=== PATIENT | male | born 1960 | race Caucasian/White ===

== ENCOUNTER → 2017-09-14 11:40 | Outpatient (CLI) | payer BC, SELFPAY ==
--- NOTE | 2017-09-14 12:02 | RAD_ITS ---
STUDY: X-RAY - LEFT KNEE REASON FOR EXAM: Male, 57 years old. Pain, recent injury TECHNIQUE: Three view(s) of the knee were obtained. COMPARISON: None. FINDINGS: The distal femur is unremarkable. The proximal tibia is unremarkable. There is mild narrowing of the medial femorotibial compartment. Normal lateral femorotibial compartment. Normal patellofemoral articulation. There is trace fullness above the patella. The soft tissue structures are unremarkable. RAD/Knee 4 or More Views IMPRESSION: No acute abnormalities are seen in the knee. There are mild degenerative changes in the medial joint. There is a trace joint effusion. Electronically Signed: Jordyn Tong MD at 18:29 EST Tel Direct: [phone], Service support ,
== END ==
PROVIDERS: Family Provider Family Medicine; PCP Family Medicine; Visit Provider Family Medicine
DX: M25.562 Pain in left knee (principal)
CPT/HCPCS: 73564

== ENCOUNTER 2017-10-23 09:00 | Outpatient (RCR) | payer BC, SELFPAY ==
--- NOTE | 2017-09-30 19:50 | HP.PTEVAL_ITS ---
Patient's Visit Information NADIA BECERRIL is a 57 year old M referred to Physical Therapy by MD WEST Casiano with a diagnosis of L knee strain. Date of Evaluation: 09/25/17 Physical Therapist: Joel Brooke - Visit Plan Frequency: 2x /Week Duration: 6 Weeks Plan: Start with HS, IT band stretching, LLE strengthening, foam rolling quads/ HS/IT band. Progress functional strengthening as tolerated. May use IFC as needed. - Subjective Subjective: Pt. is here today for his initial evaluation with diagnosis of L knee strain. Pt. reports ~6 weeks ago missing the last step while descending and hyper extending his knee. Pt. reports no initial pain, but after ~24 hours having increased soreness. Pt. denies swelling and not feeling a pop. Pt. now has a baseline pain of 2/10 at lateral knee and inferior to patella. Pt. reports increased symptoms with prolonged walking, stairs, and especially after working a full work week. 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 He reports minimal pain acutely, but has a cumulative effect. Pt. reports no medial knee pain, but only lateral and inferior to patella. Pt. had an xray- showing mild medial compartment OA. Pt. has been wearing a neoprene brace with improvement. Pt. denies numbness and no pain at night. Pt. is hopeful to reduce symptoms in order to get back to all recreational and work activities without limitations. - Pain L lateral knee Pain Intensity (Out of 10): 2 Pain Intensity Range: 1, 6 - Objective POSTURE: Pt. is over weight. Pt. has increased DAVE in stance with increased knee varus positioning bilaterally. Pt. has full knee ext in stance with equal wt. shift. PALPATION: Pt. has mild tenderness at distal IT band attachement, inferior pole of patella and superior pole of patella. Pt. has no medial joint line pain, but has slight lateral joint line pain. N MCL or LCL pain. NEUROLOGICAL: Pt. has normal senation throughout bilateral LEs. Pt. has 2+ achilles and patellar DTR bilaterally. Pt. is able to rise on heels and toes without issues or signs of weakness. ROM: R knee- 0-0-125deg empty end feel ( adipose tissues restriction). L knee 0-0-124deg (mild increase NW with knee ext + over pressure). Pt. has normal hip ROM. Pt. does have tight Hs bilat and L tight IT band. MMT: RLE ankle 5/5 throughout; knee 5/5 throughout; hip- flexion 4+/5, abd 4/5, ext 4+/5. LLE- ankle 5/5 throughout; knee- ext 4+/5, flexion 4+/5; hip- flexion 4+/5, abd 4+/5, ext 4+/5. GAIT: Pt. has slight antalgic pattern during L stance phase. Pt. does have TKE, but has increased lateral L wt. shift during L stance phase. STAIRS: Pt. negotiates without increase in pain with reciprocal pattern with 1 HR. - Special Tests L Knee Kimberli - Meniscus: Negative L Knee Apley - Meniscus: Negative L Knee Disco Test - Meniscus: Negative L Knee Anterior Drawer - ACL: Negative L Knee Posterior Drawer - PCL: Negative L Knee Valgus - MCL: Negative L Knee Varus - LCL: Negative - Goals Goal 1:: Pt. to be I with HEP. Goal Time Frame: 4-6 Weeks Goal 2:: Pt. to have increased LLE and core strength by 1/2 grade of all effected musculature. Goal Time Frame: 4-6 Weeks Goal 3:: Pt. to complete all work related activities throughout the week with 0- 1/10 pain in L knee allowing for increased ability to tolerance all work activites. Goal Time Frame: 4-6 Weeks Goal 4:: Pt. to have increased IT band and HS length by 10 deg of LLE. Goal Time Frame: 4-6 Weeks Goal 5:: Pt. to negotiate steps without increase in symptoms. Goal Time Frame: 4-6 Weeks - Rehabilitation Potential Physical Therapy Diagnosis: Pt. has signs and symptoms consistent with L knee strain. Pt. has no signs of meniscal tear or ligament laxity/tear. Pt. appears to have strained his L knee and is having IT band pain, HS pain and supra/infra patellar bursa pain. Pt. would benefit from PT to increase knee ROM, strength throughout LLE, decrease symtpoms and progress tolerance with all work and recreational activities. Rehabilitation Potential: Good - Anticipated Interventions Patient/Client Instruction: Educate patient on: Condition, Plan of Care, Risk Factors, Benefits of Fitness Program For the Purpose of:: To foster healthy habits, To improve decision making, To facilitate caregiver knowledge, To improve self management, To prevent re-injury , To improve ability to perform tasks related to life management, To improve tolerance to ADL's Therapeutic Exercise to Include: Strength training, Power training, Endurance training, Balance training, Postural training, Flexibilty training, Gait and locomotor training, Passive ROM, Active ROM, Dynamic Lumbar Stabilization For the Purpose of:: To decrease pain, To increase ROM, To improve nutrient delivery to tissue, To increase oxygenation perfusion, To improve muscle performance and motor function, To improve ability to perform ADL's, To improve gait and locomotor functions, To improve health of tissue, To decrease soft tissue restriction, To increase flexibility/ROM Manual Therapy Techniques to Include: Mobilization, Passive ROM, Soft tissue mobilization For the Purpose of:: To decrease pain, To increase ROM, To improve nutrient delivery to tissue, To increase oxygenation perfusion IF ES: Yes Cryotherapy (ice pack, ice massage): Yes For the Purpose of:: To decrease pain, To decrease swelling/inflammation, To increase ROM Thank you for the opportunity to evaluate your patient. For Medicare and Medicare HMO plans, please review the plan of care and approve it. It will need to be FAXED BACK to us at [phone] for Medicare purposes. Please let me know if there are questions or concerns regarding this plan of care. Physician Signature: Date:
--- NOTE | 2018-03-06 17:46 | HP.PTDCNRP_ITS ---
HP - Discharge Summary (1) - Patient Information NADIA BECERRIL was seen in my office for initial evaluation on 09/25/17. The following Plan of Care was established for this patient: Initial Frequency: 2x /Week Initial Duration: 6 Weeks - Anticipated Interventions Patient/Client Instruction: Educate patient on: Condition, Plan of Care, Risk Factors, Benefits of Fitness Program For the Purpose of:: To foster healthy habits, To improve decision making, To facilitate caregiver knowledge, To improve self management, To prevent re-injury , To improve ability to perform tasks related to life management, To improve tolerance to ADL's Therapeutic Exercise to Include: Strength training, Power training, Endurance training, Balance training, Postural training, Flexibilty training, Gait and locomotor training, Passive ROM, Active ROM, Dynamic Lumbar Stabilization For the Purpose of:: To decrease pain, To increase ROM, To improve nutrient delivery to tissue, To increase oxygenation perfusion, To improve muscle performance and motor function, To improve ability to perform ADL's, To improve gait and locomotor functions, To improve health of tissue, To decrease soft tissue restriction, To increase flexibility/ROM Manual Therapy Techniques to Include: Mobilization, Passive ROM, Soft tissue mobilization For the Purpose of:: To decrease pain, To increase ROM, To improve nutrient delivery to tissue, To increase oxygenation perfusion IF ES: Yes Cryotherapy (ice pack, ice massage): Yes For the Purpose of:: To decrease pain, To decrease swelling/inflammation, To increase ROM This patient was last seen in our office 10/23/17. Pertinent comments regarding their Physical therapy will appear below: Pt. was seen for his knee pain. He was progressing as expected. Pt. cancelled his last 3 appointments and did not show up for his final assesment. Pt. has not been seen in ~ 4 months and will be DC from PT at this point in time. At this point I will be discontinuing this patient from physical therapy. I would be happy to see this patient again in the future if found appropriate by the physician. Thank you! Joel Brooke
== END 2017-10-23 19:00 | disposition home or self-care (01) ==
LOC: PT 09:00
PROVIDERS: Family Provider Family Medicine; PCP Family Medicine; Visit Provider Family Medicine
DX: S86.819D Strain of other muscle(s) and tendon(s) at lower leg level, unspecified leg, subsequent encounter (principal)
CPT/HCPCS: 97110; 97161

== ENCOUNTER → 2017-11-07 08:50 | Outpatient (CLI) | payer BC, SELFPAY ==
[2017-11-07 10:32] LABS: Anion Gap 8 (5-15); BUN 13 mg/dL (7-18); BUN/Creat Ratio 12.3 RATIO (10-20); Calcium,Total 8.9 mg/dL (8.5-10.1); Chloride 110 mmol/L (98-107); Creatinine, Serum 1.06 mg/dL (0.70-1.30); EST Glomerular Filtration Rate 76 mL/min (>60); Est Glom Filt Rate - Afr Amer 92 mL/min (>60); Glucose 92 mg/dL (74-106); Potassium 4.1 mmol/L (3.5-5.1); Sodium Level 143 mmol/L (136-145)
== END ==
PROVIDERS: Family Medicine; Family Provider Family Medicine; PCP Family Medicine; Visit Provider Family Medicine
DX: I10 Essential (primary) hypertension (principal)
CPT/HCPCS: 36415; 80048

== ENCOUNTER → 2018-04-11 09:10 | Outpatient (CLI) | payer BC, SELFPAY ==
[2018-04-11 10:46] LABS: Anion Gap 11 (5-15); BUN 17 mg/dL (7-18); BUN/Creat Ratio 14.2 RATIO (10-20); Calcium,Total 9.5 mg/dL (8.5-10.1); Chloride 106 mmol/L (98-107); EST Glomerular Filtration Rate 66 mL/min (>60); Est Glom Filt Rate - Afr Amer 79 mL/min (>60); Glucose 91 mg/dL (74-106); Potassium 3.7 mmol/L (3.5-5.1); Sodium Level 142 mmol/L (136-145)
== END ==
PROVIDERS: Family Provider Family Medicine; PCP Family Medicine; Visit Provider Family Medicine
DX: I10 Essential (primary) hypertension (principal)
CPT/HCPCS: 36415; 80048

== ENCOUNTER → 2018-10-09 09:23 | Outpatient (CLI) | payer BC, SELFPAY ==
[2017-12-18 09:31] VITALS: BMI 47.1
[2018-10-09 10:23] LABS: Absolute Lymphocyte Count 1.67 X10^3/ul (0.83-4.51); Absolute Neutrophil Count 3.1 X10^3/uL (2.0-7.7); Basophil# 0.01 X10^3/uL; Basophil% 0.2 % (0-1); Eosinophils% 1.8 % (0-5); Hematocrit 47.1 % (40-54); Hemoglobin 15.6 g/dl (13.0-16.5); Lymphocyte # 1.67 X10^3/ul (4.0); Lymphocyte % 30.3 % (19-41); Mean Corp Hgb Conc 33.1 g/gl (32-36); Mean Corpuscular Hgb 29.3 pg (27.0-32.0); Mean Corpuscular Volume 88.5 fL (80-94); Mean Platelet Vol. 9.4 fl (6.2-12.0); Monocyte# 0.66 X10^3/uL; Neutrophil # 3.07 X10^3/uL (2.7-7.7); Neutrophil % 55.5 % (47-70); Platelet Count 200 K/mm3 (150-450); RBC Distribution Width CV 13.8 % (11.6-14.6); RBC Distribution Width SD 44.9 fl (35.1-43.9); Red Blood Count 5.32 M/mm3 (4.6-6.2); White Blood Count 5.5 K/mm3 (4.4-11.0)
[2018-10-09 10:25] LABS: POSITIVE COUNT NO; POSITIVE DIFFERENTIAL NO; POSITIVE MORPHOLOGY NO
[2018-10-09 10:54] LABS: Anion Gap 9 (5-15); BUN 13 mg/dL (7-18); BUN/Creat Ratio 13.1 RATIO (10-20); Calcium,Total 9.1 mg/dL (8.5-10.1); Chloride 107 mmol/L (98-107); EST Glomerular Filtration Rate 81 mL/min (>60); Est Glom Filt Rate - Afr Amer 98 mL/min (>60); Glucose 94 mg/dL (74-106); Potassium 3.7 mmol/L (3.5-5.1); Sodium Level 142 mmol/L (136-145); Thyroid Stim Hormone (TSH) 1.54 uIU/mL (0.358-3.74)
== END ==
PROVIDERS: Family Provider Family Medicine; PCP Family Medicine; Referring Provider Family Medicine; Visit Provider Family Medicine
DX: R53.83 Other fatigue (principal)
CPT/HCPCS: 36415; 80048; 84403; 84443; 85025

== ENCOUNTER → 2019-05-16 11:10 | Outpatient (CLI) | payer BC, SELFPAY ==
[2018-12-24 09:13] VITALS: BMI 50.1
[2019-05-16 11:34] LABS: Hematocrit 46.1 % (40-54); Hemoglobin 15.6 g/dL (13.0-16.5); Mean Corp Hgb Conc 33.8 g/dL (32-36); Mean Corpuscular Volume 88.7 fL (80-94); Mean Platelet Vol. 9.3 fl (6.2-12.0); Platelet Count 211 K/mm3 (150-450); RBC Distribution Width CV 12.6 % (11.6-14.6); RBC Distribution Width SD 41.5 fl (35.1-43.9); White Blood Count 6.1 K/mm3 (4.4-11.0)
[2019-05-16 12:08] LABS: Vitamin B12 382 pg/mL (211-911)
[2019-05-16 12:43] LABS: ALB/GLOB Ratio 1.1 RATIO (0.9-2.4); AST(SGOT) 21 U/L (15-37); Alanine Aminotransfer ALT/SGPT 28 U/L (16-61); Albumin, Serum 3.9 g/dL (3.2-5.0); Alkaline Phosphatase 72 U/L (45-117); Anion Gap 5 (5-15); BUN 15 mg/dL (7-18); BUN/Creat Ratio 12.8 RATIO (10-20); Chloride 107 mmol/L (98-107); Creatinine, Serum 1.17 mg/dL (0.70-1.30); EST Glomerular Filtration Rate 67 mL/min (>60); Est Glom Filt Rate - Afr Amer 82 mL/min (>60); Globulin 3.7 g/dL (2.2-4.2); Glucose 89 mg/dL (74-106); Potassium 3.9 mmol/L (3.5-5.1); Protein, Total 7.6 g/dL (6.4-8.2); Sodium Level 141 mmol/L (136-145)
[2019-05-20 16:44] LABS: KEPPRA (LEVETIRACETAM) 22.3 ug/mL (10.0-40.0)
== END ==
PROVIDERS: Family Provider Family Medicine; PCP Family Medicine; Referring Provider Clinical Nurse Specialist Acute Care; Visit Provider Clinical Nurse Specialist Acute Care
DX: R56.9 Unspecified convulsions (principal)
CPT/HCPCS: 36415; 80053; 80177; 82607; 82746; 85027

== ENCOUNTER → 2019-10-23 16:14 | Outpatient (CLI) | payer BC, SELFPAY ==
[2018-12-24 09:13] VITALS: BMI 50.1
[2019-10-23 17:56] LABS: PSA,Total - Annual Screen 1.07 ng/mL (0.00-4.00)
== END ==
PROVIDERS: PCP Family Medicine; Referring Provider Family Medicine; Visit Provider Nurse Practitioner Family
DX: Z12.5 Encounter for screening for malignant neoplasm of prostate (principal)
CPT/HCPCS: 36415; 84153; G0103

== ENCOUNTER → 2020-03-03 08:45 | Outpatient (CLI) | payer BC, SELFPAY ==
[2020-01-16 15:25] VITALS: BMI 50.8
--- NOTE | 2020-03-03 08:48 | ECHOCS_ITS ---
Reason For Study: VALVR REPL Procedure This was a 2D Doppler, Color Flow transthoracic echocardiogram. Exam performed in department. Left Ventricle Normal LV size. Septal motion consistent with IVCD. The estimated ejection fraction is 50 %. No regional wall motion abnormalities noted. Right Ventricle Normal RV size. Normal systolic function. Atria Normal left atrium. Normal right atrium. Mitral Valve There is mild mitral annular calcification. Tricuspid Valve Bioprosthetic tricuspid valve. Aortic Valve The aortic valve is not well visualized. Pulmonic Valve The pulmonic valve is not well visualized. Great Vessels Normal aortic root. The pulmonary artery is normal size. Normal inferior vena cava. Pericardium/Pleural No pericardial effusion. Medication 22 gauge I.V. with prn adaptor inserted into right arm. Diluted definity 4.0ml given slow IV push to enhance endocardial definition. MMode/2D Measurements & Calculations LVIDd: 5.5 cm IVSd: 1.1 cm Ao root diam: 4.0 cm LVIDs: 3.5 cm LVPWd: 1.1 cm RVDd: 3.9 cm FS: 35.5 % LAV(MOD-bp): 58.5 ml LVAd ap4: 35.1 cm2 SV(MOD-sp4): 57.2 ml LAV(MOD-bp) Indexed: 24.1 ml/m2 EDV(MOD-sp4): 125.7 ml LAV(MOD-sp2): 38.2 ml EDV(sp4-el): 125.8 ml LAV(MOD-sp4): 69.5 ml LVAs ap4: 23.9 cm2 ESV(MOD-sp4): 68.5 ml ESV(sp4-el): 66.7 ml EF(MOD-sp4): 45.5 % EF(sp4-el): 47.0 % SV(sp4-el): 59.2 ml LA A4 area: 23.1 cm2 LA dimension(2D): 5.5 cm RA A4 area: 18.2 cm2 Time Measurements MV dec time: 0.22 sec Doppler Measurements & Calculations MV E max chris: 65.0 cm/sec Lat Peak E' Chris: 8.6 cm/sec Med Peak E' Chris: 4.9 cm/sec MV A max chris: 77.1 cm/sec E/E' lat: 7.6 E/E' med: 13.3 MV E/A: 0.84 Ao V2 max: 116.7 cm/sec LV V1 max: 71.8 cm/sec TV V2 max: 131.0 cm/sec Ao max P.4 mmHg LV V1 max P.1 mmHg TV max P.9 mmHg TV V2 mean: 89.7 cm/sec TV mean P.4 mmHg PA V2 max: 108.1 cm/sec PI end-d chris: 150.9 cm/sec Interpretation Summary Normal LV size. Septal motion consistent with IVCD. The estimated ejection fraction is 50 %. Bioprosthetic tricuspid valve. Contrast injection was performed. There is no evidence of a mass or vegetation. This does not rule out endocarditis. Ordering Physician: Mainor Albarran Referring Physician: LUIS CLEVELAND Performed By: Arabella Brown, SELAM, RVT
== END ==
PROVIDERS: PCP Family Medicine; Referring Provider Internal Medicine Cardiovascular Disease; Visit Provider Internal Medicine Cardiovascular Disease
DX: I36.1 Nonrheumatic tricuspid (valve) insufficiency (principal); Z95.2 Presence of prosthetic heart valve
CPT/HCPCS: 93306; Q9957; A4216; C8929

== ENCOUNTER → 2020-04-26 16:40 | Outpatient (CLI) | payer BC, SELFPAY ==
[2020-01-16 15:25] VITALS: BMI 50.8
[2020-04-26 18:45] LABS: ALB/GLOB Ratio 1.1 RATIO (0.9-2.4); AST(SGOT) 25 U/L (15-37); Alanine Aminotransfer ALT/SGPT 32 U/L (16-61); Albumin, Serum 3.8 g/dL (3.2-5.0); Alkaline Phosphatase 65 U/L (45-117); Anion Gap 3 (5-15); BUN 13 mg/dL (7-18); BUN/Creat Ratio 11.3 RATIO (10-20); Calcium,Total 9.4 mg/dL (8.5-10.1); Chloride 105 mmol/L (98-107); Cholesterol 144 mg/dL (200); Creatinine, Serum 1.15 mg/dL (0.70-1.30); EST Glomerular Filtration Rate 69 mL/min (>60); Est Glom Filt Rate - Afr Amer 83 mL/min (>60); Globulin 3.6 g/dL (2.2-4.2); Glucose 88 mg/dL (74-106); High Density Lipoprotein 53 mg/dL; Potassium 4.4 mmol/L (3.5-5.1); Protein, Total 7.4 g/dL (6.4-8.2); Sodium Level 140 mmol/L (136-145); Triglycerides 161 mg/dL; Very Low Density Lipoprotein 32 mg/dL (5-40)
== END ==
PROVIDERS: PCP Family Medicine; Referring Provider Family Medicine; Visit Provider Family Medicine
DX: I10 Essential (primary) hypertension (principal)
CPT/HCPCS: 36415; 80053; 80061

== ENCOUNTER → 2020-05-14 07:40 | Outpatient (CLI) | payer BC, SELFPAY ==
[2020-05-13 08:12] VITALS: BMI 50.8
[2020-05-17 20:17] LABS: KEPPRA (LEVETIRACETAM) 14.9 ug/mL (10.0-40.0)
== END ==
PROVIDERS: PCP Family Medicine; Referring Provider Nurse Practitioner Family; Visit Provider Nurse Practitioner Family
DX: G40.909 Epilepsy, unspecified, not intractable, without status epilepticus (principal)
CPT/HCPCS: 36415; 80177; 82140

== ENCOUNTER → 2020-07-13 14:46 | Outpatient (CLI) | payer BC, SELFPAY ==
[2020-05-13 08:12] VITALS: BMI 50.8
== END ==
PROVIDERS: PCP Family Medicine; Referring Provider Psychiatry & Neurology Neurology; Visit Provider Psychiatry & Neurology Neurology
DX: G40.909 Epilepsy, unspecified, not intractable, without status epilepticus (principal)
CPT/HCPCS: 36415; 82140

== ENCOUNTER → 2020-10-11 08:30 | Outpatient (CLI) | payer BC, SELFPAY ==
[2020-05-13 08:12] VITALS: BMI 50.8
[2020-10-11 10:44] LABS: Anion Gap 8 (5-15); BUN 15 mg/dL (7-18); BUN/Creat Ratio 12.8 RATIO (10-20); Calcium,Total 9.5 mg/dL (8.5-10.1); Chloride 105 mmol/L (98-107); Cholesterol 150 mg/dL (200); Creatinine, Serum 1.17 mg/dL (0.70-1.30); EST Glomerular Filtration Rate 67 mL/min (>60); Est Glom Filt Rate - Afr Amer 81 mL/min (>60); Glucose 98 mg/dL (74-106); High Density Lipoprotein 57 mg/dL; Potassium 3.8 mmol/L (3.5-5.1); Sodium Level 140 mmol/L (136-145); Triglycerides 109 mg/dL; Very Low Density Lipoprotein 22 mg/dL (5-40)
[2020-10-16 14:42] LABS: KEPPRA (LEVETIRACETAM) 22.7 ug/mL (10.0-40.0)
== END ==
PROVIDERS: PCP Family Medicine; Referring Provider Family Medicine; Visit Provider Family Medicine
DX: G40.909 Epilepsy, unspecified, not intractable, without status epilepticus (principal); I10 Essential (primary) hypertension
CPT/HCPCS: 36415; 80048; 80061; 80177

== ENCOUNTER → 2020-12-08 08:51 | Outpatient (CLI) | payer BC, SELFPAY ==
[2020-05-13 08:12] VITALS: BMI 50.8
== END ==
PROVIDERS: PCP Family Medicine; Referring Provider Psychiatry & Neurology Neurology; Visit Provider Psychiatry & Neurology Neurology
DX: G40.909 Epilepsy, unspecified, not intractable, without status epilepticus (principal)
CPT/HCPCS: 36415; 82140

== ENCOUNTER → 2021-04-13 16:32 | Outpatient (CLI) | payer BC, SELFPAY ==
[2021-04-13 17:52] LABS: Anion Gap 5 (5-15); BUN 12 mg/dL (7-18); BUN/Creat Ratio 10.4 RATIO (10-20); Calcium,Total 9.8 mg/dL (8.5-10.1); Chloride 108 mmol/L (98-107); Cholesterol 166 mg/dL (200); Creatinine, Serum 1.15 mg/dL (0.70-1.30); EST Glomerular Filtration Rate 68 mL/min (>60); Est Glom Filt Rate - Afr Amer 83 mL/min (>60); Glucose 90 mg/dL (74-106); High Density Lipoprotein 61 mg/dL; Potassium 3.8 mmol/L (3.5-5.1); Sodium Level 138 mmol/L (136-145); Triglycerides 173 mg/dL; Very Low Density Lipoprotein 35 mg/dL (5-40)
== END ==
PROVIDERS: PCP Family Medicine; Referring Provider Family Medicine; Visit Provider Family Medicine
DX: I10 Essential (primary) hypertension (principal)
CPT/HCPCS: 36415; 80048; 80061

== ENCOUNTER → 2021-07-15 14:37 | Outpatient (CLI) | payer BC, SELFPAY ==
[2021-07-15 15:30] LABS: AST(SGOT) 24 U/L (15-37); Alanine Aminotransfer ALT/SGPT 33 U/L (16-61); Albumin, Serum 3.5 g/dL (3.2-5.0); Alkaline Phosphatase 73 U/L (45-117); Bilirubin, Direct 0.18 mg/dL (0.00-0.30); Globulin 4.1 g/dL (2.2-4.2); Protein, Total 7.6 g/dL (6.4-8.2)
[2021-07-20 19:18] LABS: KEPPRA (LEVETIRACETAM) 14.4 ug/mL (10.0-40.0)
== END ==
PROVIDERS: PCP Family Medicine; Referring Provider Nurse Practitioner Family; Visit Provider Nurse Practitioner Family
DX: G40.909 Epilepsy, unspecified, not intractable, without status epilepticus (principal); R79.89 Other specified abnormal findings of blood chemistry
CPT/HCPCS: 36415; 80076; 80177; 82140

== ENCOUNTER 2021-08-29 10:04 | Outpatient (CLI) | payer BC, SELFPAY | END 2021-08-29 23:59 | disposition short-term general hospital (02) | PROVIDERS: PCP Family Medicine; Visit Provider Nurse Practitioner Family | DX: R79.89 Other specified abnormal findings of blood chemistry (principal) | CPT/HCPCS: 36415; 82140 ==

== ENCOUNTER 2021-11-04 15:53 | Outpatient (CLI) | payer BC, SELFPAY ==
[2021-11-04 18:13] LABS: Vitamin D,25 Hydroxy 25.3 ng/mL
[2021-11-04 18:26] LABS: Anion Gap 6 (5-15); BUN 16 mg/dL (7-18); BUN/Creat Ratio 13.3 RATIO (10-20); Calcium,Total 9.3 mg/dL (8.5-10.1); Chloride 103 mmol/L (98-107); Cholesterol 168 mg/dL (200); EST Glomerular Filtration Rate 65 mL/min (>60); Est Glom Filt Rate - Afr Amer 79 mL/min (>60); Glucose 89 mg/dL (74-106); High Density Lipoprotein 61 mg/dL; PSA,Total - Annual Screen 1.36 ng/mL (0.00-4.00); Potassium 3.6 mmol/L (3.5-5.1); Sodium Level 139 mmol/L (136-145); Thyroid Stim Hormone (TSH) 1.82 uIU/mL (0.358-3.74); Triglycerides 113 mg/dL; Very Low Density Lipoprotein 23 mg/dL (5-40)
== END 2021-11-04 23:59 | disposition home or self-care (01) ==
LOC: MTLAB 15:54
PROVIDERS: PCP Family Medicine; Referring Provider Family Medicine; Visit Provider Family Medicine
DX: Z00.00 Encounter for general adult medical examination without abnormal findings (principal)
CPT/HCPCS: 36415; 80048; 80061; 82306; 84153; 84443; G0103

== ENCOUNTER → 2022-05-17 | Outpatient (CLI) | payer BC, SELFPAY ==
[2022-05-17 18:23] LABS: Anion Gap 9 (5-15); BUN 12 mg/dL (7-18); BUN/Creat Ratio 10.3 RATIO (10-20); Calcium,Total 10.3 mg/dL (8.5-10.1); Chloride 108 mmol/L (98-107); Cholesterol 155 mg/dL (200); Creatinine, Serum 1.17 mg/dL (0.70-1.30); EST Glomerular Filtration Rate 67 mL/min (>60); Est Glom Filt Rate - Afr Amer 81 mL/min (>60); Glucose 85 mg/dL (74-106); High Density Lipoprotein 56 mg/dL; Potassium 3.5 mmol/L (3.5-5.1); Sodium Level 143 mmol/L (136-145); Triglycerides 132 mg/dL; Very Low Density Lipoprotein 26 mg/dL (5-40)
== END | disposition home or self-care (01) ==
LOC: MFPLAB 16:50
PROVIDERS: PCP Family Medicine; Referring Provider Family Medicine; Visit Provider Family Medicine
DX: I10 Essential (primary) hypertension (principal)
CPT/HCPCS: 36415; 80048; 80061

== ENCOUNTER 2022-05-26 07:19 | Day surgery (SDC) | payer BC, SELFPAY ==
[2022-05-26 07:48] VITALS: BP 127/86; PULSE 70; RESP 16; TEMP 36.4; O2SAT 100; BMI 51.9
[2022-05-26] MEDS: Lactated Ringers 1,000 ML 15 ML IV (07:56)
--- NOTE | 2022-05-26 08:12 | PCM.HP.BLA ---
History and Physical Date of Admission: 05/26/22 Intake Vital Signs ? 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 Taper Operator Required: No Is patient in pain?: No Allergies No Known Allergies Allergy (Verified 12/06/21 08:59) Medications multivitamin 1 ea PO DAILY 01/03/16 [History Confirmed 12/06/21] acetaminophen 650 mg PO Q6H PRN PRN #0 tab 01/07/16 [Rx Confirmed 12/06/21] aspirin 81 mg tablet,delayed release 81 mg PO QDAY 12/17/17 [History Confirmed 12/06/21] triamcinolone acetonide 55 mcg nasal spray aerosol 1 spray INTRANASAL QDAY PRN 12/18/17 [History Confirmed 12/06/21] hydrochlorothiazide 25 mg tablet 25 mg PO QDAY #90 tab 07/20/21 [Rx Confirmed 12/06/21] lisinopril 20 mg tablet 20 mg PO QDAY #90 tab 07/20/21 [Rx Confirmed 12/06/21] pravastatin 40 mg tablet 40 mg PO QHS #90 tab 07/20/21 [Rx Confirmed 12/06/21] lactulose 10 gram/15 mL oral solution 30 ml PO DAILY #2700 ml 12/05/21 [Rx Confirmed 12/06/21] levetiracetam 1,000 mg tablet 1,000 mg PO BID #180 tablet 12/05/21 [Rx Confirmed 12/06/21] PFSH Medical History? Bronchitis Cellulitis Cerebrovascular disease CVA (cerebral vascular accident) DVT (deep venous thrombosis) Endocarditis of tricuspid valve Enterococcal bacteremia Epidural abscess Epilepsy, unspecified, not intractable, without status epilepticus Essential hypertension Hx of sepsis Hyperlipidemia Increased ammonia level Iron deficiency anemia Lung nodule Non-rheumatic tricuspid valve insufficiency Obesity Obstructive sleep apnea Pulmonary emboli Renal insufficiency Venous insufficiency of both lower extremities Surgical History? 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 HLD (hyperlipidemia)Sister HypertensionDaughter SeizuresGrandfather Heart diseaseUncle Colon cancer Diabetes Social History? Smoking Status:? Never smoker alcohol intake:? current alcohol intake frequency: holidays/special occasions only Alcohol type: beer and hard liquor substance use type:? does not use HPI HPI HPI: NADIA BECERRIL, is a 61 M who presents to the office today for colonoscopy.? Patient has never had a screening colonoscopy.? He did have a Cologuard 5 or 6 years ago which was normal.? He has no family history of colon cancer.? He is not having any abdominal pain or blood in the stool. ROS General General: Yes weight change; No appetite, fatigue, colon cancer, breast cancer or weakness HEENT HEENT: No difficulty swallowing, eye injury, eye surgery, swollen glands or hoarseness Endo Endocrine: No thyroid disease, diabetes mellitus, thyroid cancer, Hair loss, heat intolerance or cold intolerance Skin Skin: No rash or changing moles Musc Musculoskeletal: Yes arthritis; No back problems, rheumatoid arthritis, gout or joint pain Cardio Cardiovascular: Yes high blood pressure; No murmur, pacemaker, heart disease, atrial fibrillation, heart attack, heart stent, palpitations, shortness of breat with exertion or chest pain Additional Details: Hx of valve replacement Psych Psychiatric: No depression, anxiety or hearing voices Resp Respiratory: Yes shortness of breath, Yes sleep apnea, No cough, No COPD, No asthma, No emphysema and No wheezing Gastro Gastrointestinal: No abdominal pain, No nausea or vomiting, No diarrhea, No constipation, No blood in stool, No acid reflux, Yes hemorrhoids, No ulcers, No gallbladder problem and No black,tarry stools Bubba Hematologic: No blood thinners, No blood disorders, No bleeding, No anemia and No blood clots Neuro Neurologic: No system reviewed and no additional complaints, except as documented, No as per HPI, No abnormal gait, No abnormal hearing, No abnormal movements, No abnormal speech, No behavioral changes, No burning sensations, No confusion, No convulsions, No disequilibrium, No dizziness, No localized weakness, No frequent falls, No headache(s), No lack of coordination, No loss of vision, No memory loss, No numbness, No other visual disturbances, No radicular pain, No restless legs, No sensory deficit, No syncope, No tingling, No tremor(s), No weakness and No other Exam Const General: cooperative Orientation: alert and oriented x3 HENMT Head: normal to inspection Neck Neck: normal visual inspection and full ROM Chest Chest palpation & inspection: normal inspection of the chest Resp Effort & Inspection: normal respiratory effort Auscultation: clear to auscultation bilaterally Cardio Rate: regular rate Rhythm: regular rhythm GI Inspection: non-distended Palpation: soft and nontender Skin General: no rashes or lesions noted Neuro General: patient alert and patient oriented x3 Extrem General: full ROM Psych Appearance: grossly normal Mental Status: mental status grossly normal Assessment and Plan Assessment and Plan (1) Screen for colon cancer: ?Status:?Acute ?Plan - Dr. Sohan Zheng MD: I explained endoscopy in detail to the patient.? I explained the risks including but not limited to stroke or heart attack with anesthesia, perforation of the GI tract, bleeding, infection.? I explained that any of these could necessitate further emergency surgery.? The patient understands and all questions were answered sufficiently.? The patient wishes to proceed with procedure. Sohan Zheng MD Pager: [facility] [address] [place] [address], [address] [place] [address] Office: I have re-examined the patient. There are no clinical changes since date of exam.
--- NOTE | 2022-05-26 08:30 | COLBX_PTH ---
PATIENT: NADIA BECERRIL LOC: EN U#:[id number] AGE/SX: 62/M ROOM: RE05/26/[address]: Dr. Sohan Zheng MD : 1960 BED: DIS: 05/26/2022 SPEC #: [id number] RECD: 05/26/22 11:31 STATUS: CITLALLI REGrisel #: [id number] AQUILINO: 05/26/22 08:[address]: Sohan Zheng DEPT: SURGICAL PATHOLOGY RECD BY: Ting Walton ENTERED: 05/26/22 12:33 SP TYPE: COLON BX OTHR DR: Dr. Esteban Hensley MD Tissues: Cecum, NOS Procedures: Surgery Specimen Level IV HEADER OPERATION: Colonoscopy (MAC) PRE-OP DIAGNOSIS: Screening TISSUE SUBMITTED: Cecum polyp MICROSCOPIC DIAGNOSIS Cecal polyp, biopsy: Fragments of tubular adenoma. AM:sierra 05/29/2022 MICROSCOPIC DESCRIPTION Slides are reviewed. GROSS DESCRIPTION Received in fixative is one container labeled with the patient's name and designated cecal polyp. The specimen consists of multiple irregular fragments of light marroquin soft tissue that in aggregate measure 1 x 0.6 x 0.1 cm. The specimen is totally submitted in one cassette. / AM:sierra 05/26/2022 TC:5 CPT: 64282
[2022-05-26 08:45] VITALS: BP 118/108; BP 127/86; PULSE 71; RESP 16; TEMP 36.9; O2SAT 93
--- NOTE | 2022-05-26 08:46 | OP.COLON_ITS ---
Patient Name: Fredis Bills Procedure Date: 05/26/2022 8:25 AM Date of : 1960 Age: 62 Procedure: Colonoscopy Indications: Screening for colorectal malignant neoplasm Providers: Sohan Zheng MD Medicines: Monitored Anesthesia Care Patient Profile: This is a 62 year old male. Refer to note in patient chart for documentation of history and physical. Last Colonoscopy: none. The patient's first colonoscopy is today. Complications: No immediate complications. Procedure: Pre-Anesthesia Assessment: - Prior to the procedure, a History and Physical was performed, and patient medications and allergies were reviewed. The patient's tolerance of previous anesthesia was also reviewed. The risks and benefits of the procedure and the sedation options and risks were discussed with the patient. All questions were answered, and informed consent was obtained. Prior Anticoagulants: The patient has taken no previous anticoagulant or antiplatelet agents. After reviewing the risks and benefits, the patient was deemed in satisfactory condition to undergo the procedure. After I obtained informed consent, the scope was passed under direct vision. Throughout the procedure, the patient's blood pressure, pulse, and oxygen saturations were monitored continuously. The Colonoscope was introduced through the anus and advanced to the cecum, identified by appendiceal orifice and ileocecal valve. The colonoscopy was performed without difficulty. The patient tolerated the procedure well. The quality of the bowel preparation was good. Scope In: 8:28:01 AM Scope Withdrawal Time 0 hours 7 minutes 21 seconds Scope Out: 8:38:24 AM Total Procedure Duration Time 0 hours 10 minutes 23 seconds Findings: A medium polyp was found in the cecum. The polyp was removed with a hot snare. Resection and retrieval were complete. Verification of patient identification for the specimen was done. The exam was otherwise without abnormality on direct and retroflexion views. Impression: - One medium polyp in the cecum, removed with a hot snare. Resected and retrieved. - The examination was otherwise normal on direct and retroflexion views. Recommendation: - Await pathology results. - Repeat colonoscopy in 5 years for surveillance. - Discharge patient to home. - Resume previous diet. - Continue present medications. Procedure Code(s): --- Professional --- 39392, Colonoscopy, flexible; with removal of tumor(s), polyp(s), or other lesion(s) by snare technique Diagnosis Code(s): --- Professional --- Z12.11, Encounter for screening for malignant neoplasm of colon D12.0, Benign neoplasm of cecum CPT copyright 2017 [employer] [place] [employer]. All rights reserved. The codes documented in this report are preliminary and upon juke box mechanic review may be revised to meet current compliance requirements. Sohan Zheng MD 05/26/2022 8:45:43 AM This report has been signed electronically. Number of Addenda: 0 Note Initiated On: 05/26/2022 8:25 AM
--- NOTE | 2022-05-26 08:47 | OP.CCLET_ITS ---
05/26/2022 Esteban Hensley MD [address] [place] [address] Re : Colonoscopy procedure for Fredis Bills Dear Dr. Hensley This procedure was performed on Thursday, May 26, 2022. My impressions and recommendations are as follows: Impressions : - One medium polyp in the cecum, removed with a hot snare. Resected and retrieved. - The examination was otherwise normal on direct and retroflexion views. Recommendations : - Await pathology results. - Repeat colonoscopy in 5 years for surveillance. - Discharge patient to home. - Resume previous diet. - Continue present medications. My findings are described in the full procedure note, which is enclosed. If I can be of further assistance, please feel free to contact me at Doctor phone number(s): , Work: . Sincerely, Sohan Zheng MD 05/26/2022 8:45:43 AM This report has been signed electronically.
[2022-05-26 08:50] VITALS: BP 127/86; BP 72/42; PULSE 72; RESP 16; O2SAT 89
[2022-05-26 08:55] VITALS: BP 127/86; BP 99/74; PULSE 66; RESP 16; O2SAT 94
[2022-05-26 09:00] VITALS: BP 103/72; BP 127/86; PULSE 65; RESP 16; TEMP 36.8; O2SAT 93
[2022-05-26 09:14] VITALS: BP 127/86
== END 2022-05-26 09:43 | disposition home or self-care (01) ==
LOC: EN 07:20 → AC 07:21
PROVIDERS: PCP Family Medicine; Referring Provider Family Medicine; Visit Provider Surgery
PROC: 0DJD8ZZ Inspection of Lower Intestinal Tract, Via Natural or Artificial Opening Endoscopic (ICD-10-PCS; CPT 45378; principal; 2022-05-26 08:25)
DX: Z12.11 Encounter for screening for malignant neoplasm of colon (principal); Z68.43 Body mass index [BMI] 50.0-59.9, adult; G40.909 Epilepsy, unspecified, not intractable, without status epilepticus; D12.0 Benign neoplasm of cecum; I10 Essential (primary) hypertension; E78.5 Hyperlipidemia, unspecified; G47.33 Obstructive sleep apnea (adult) (pediatric); E66.9 Obesity, unspecified; Z79.82 Long term (current) use of aspirin; Z79.899 Other long term (current) drug therapy; Z86.73 Personal history of transient ischemic attack (TIA), and cerebral infarction without residual deficits; Z86.718 Personal history of other venous thrombosis and embolism; Z80.0 Family history of malignant neoplasm of digestive organs
CPT/HCPCS: 45385; 88305; J7120; J0290; J2405

== ENCOUNTER → 2022-08-31 | Outpatient (CLI) | payer BC, SELFPAY ==
[2022-08-31 16:31] LABS: ALB/GLOB Ratio 1.1 RATIO (0.9-2.4); AST(SGOT) 26 U/L (15-37); Alanine Aminotransfer ALT/SGPT 33 U/L (16-61); Alkaline Phosphatase 64 U/L (45-117); Anion Gap 8 (5-15); BUN 15 mg/dL (7-18); BUN/Creat Ratio 12.9 RATIO (10-20); Calcium,Total 9.3 mg/dL (8.5-10.1); Chloride 108 mmol/L (98-107); Creatinine, Serum 1.16 mg/dL (0.70-1.30); EST Glomerular Filtration Rate 67 mL/min (>60); Est Glom Filt Rate - Afr Amer 81 mL/min (>60); Globulin 3.6 g/dL (2.2-4.2); Glucose 96 mg/dL (74-106); Potassium 3.6 mmol/L (3.5-5.1); Protein, Total 7.6 g/dL (6.4-8.2); Sodium Level 143 mmol/L (136-145)
[2022-09-04 20:54] LABS: KEPPRA (LEVETIRACETAM) 16.1 ug/mL (10.0-40.0)
== END | disposition home or self-care (01) ==
LOC: LAB 15:27
PROVIDERS: PCP Family Medicine; Visit Provider Nurse Practitioner Family
DX: G40.909 Epilepsy, unspecified, not intractable, without status epilepticus (principal)
CPT/HCPCS: 36415; 80053; 80177; 82140

== ENCOUNTER → 2022-10-04 | Outpatient (CLI) | payer BC, SELFPAY ==
[2022-10-04 16:33] LABS: Hematocrit 48.7 % (40-54); Hemoglobin 15.7 g/dL (13.0-16.5); Mean Corp Hgb Conc 32.2 g/dL (32-36); Mean Corpuscular Hgb 29.6 pg (27.0-32.0); Mean Corpuscular Volume 91.9 fL (80-94); Mean Platelet Vol. 9.6 fl (6.2-12.0); Platelet Count 195 K/mm3 (150-450); RBC Distribution Width CV 13.7 % (11.6-14.6); RBC Distribution Width SD 46.6 fl (35.1-43.9); White Blood Count 11.9 K/mm3 (4.4-11.0)
== END | disposition home or self-care (01) ==
LOC: MFPLAB 11:42
PROVIDERS: PCP Family Medicine; Visit Provider Nurse Practitioner Family
DX: R52 Pain, unspecified (principal)
CPT/HCPCS: 36415; 85027

== ENCOUNTER 2022-10-07 11:54 | Inpatient (IN) | payer BC, SELFPAY ==
[2022-10-07 11:55] VITALS: BP 147/119; PULSE 86; RESP 88; TEMP 36.2; O2SAT 98; BMI 53.7
--- NOTE | 2022-10-07 12:07 | VDLE_ITS ---
Reason For Study: PAIN RIGHT GSV is normal. CFV is compressible, spontaneous, phasic, competent and demonstrates normal augmentation. FV is compressible, spontaneous, phasic, competent and demonstrates normal augmentation. POP V is compressible, spontaneous, phasic, competent and demonstrates normal augmentation. T/P Trunk is compressible. PTV is compressible. RT PerV is compressible. Procedure This is a venous duplex using B-mode, color flow and spectral Doppler. Exam performed portable in patient room. The study was technically difficult. A preliminary report was called and/or faxed to [facility]. VL/Venous Duplex US, Unilateral Interpretation Summary Deep veins of the right lower extremity are patent and compressible segmentally . There is no evidence of right lower extremity deep vein thrombosis. The right great sapheno us vein appears patent and compressible segmentally. Ordering Physician: Anuradha Nieto Referring Physician: Esteban Hensley Performed By: Melvina Hinds, SELAM, RVT
--- NOTE | 2022-10-07 12:09 | EX.ED.DYSGE1 ---
HPI <WILMER Soriano - Last Filed: 10/07/22 14:19> History of Present Illness Chief Complaint: Cellulitis Narrative Narrative: 62-year-old male presents with right leg cellulitis. 4 days ago he had fever and chills and saw his doctor. He had negative COVID and flu swabs and a normal CBC. The next day he still was not feeling well and noticed redness of his right lower leg extending up the inner thigh. He went to urgent care and was prescribed Keflex 4 times a day which she has been taking for the last 2.5 days. He states the redness is superintendent terminal and his fever/chills have resolved but since it was not getting completely better he came in for evaluation. PFS <WILMER Soriano - Last Filed: 10/07/22 14:19> [facility] Medical History BiPAP (biphasic positive airway pressure) dependence Bronchitis Cardiology follow-up encounter Cellulitis Cerebrovascular disease CVA (cerebral vascular accident) DVT (deep venous thrombosis) Endocarditis of tricuspid valve Enterococcal bacteremia Epidural abscess Epilepsy, unspecified, not intractable, without status epilepticus Essential hypertension History of edema History of stress test Hx of sepsis Hyperlipidemia Increased ammonia level Iron deficiency anemia Lung nodule Non-rheumatic tricuspid valve insufficiency Non-smoker Obesity Obstructive sleep apnea Pulmonary emboli Renal insufficiency Seizures Sleep apnea Venous insufficiency of both lower extremities Wears dentures Wears glasses Wears partial dentures Home Medications multivitamin 1 ea PO DAILY 01/03/16 [History Last Taken 10/07/22] aspirin 81 mg tablet,delayed release (Adult Low Dose Aspirin) 81 mg PO QDAY 12/17/17 [History Last Taken 10/07/22] triamcinolone acetonide 55 mcg nasal spray aerosol (Nasacort) 1 spray intranasal QDAY PRN Allergy Symptoms 12/18/17 [History Last Taken Unknown] cholecalciferol (vitamin D3) 25 mcg (1,000 unit) capsule 25 mcg PO DAILY 05/09/22 [History Last Taken 10/07/22] hydrochlorothiazide 25 mg tablet 25 mg PO QDAY #90 tabs 06/26/22 [Rx Last Taken 10/07/22] lisinopril 20 mg tablet 20 mg PO QDAY #90 tabs 06/26/22 [Rx Last Taken 10/07/22] pravastatin 40 mg tablet 40 mg PO QHS #90 tabs 06/26/22 [Rx Last Taken 10/06/22] levetiracetam 1,000 mg tablet 1,000 mg PO BID #180 tabs 09/07/22 [Rx Last Taken 10/07/22] cephalexin 500 mg capsule 500 mg PO 4XD . 10/07/22 [History Last Taken 10/07/22] loratadine 10 mg tablet 10 mg PO DAILY ALLERGIES 10/07/22 [History Last Taken 10/07/22] Allergy/AdvReac Type Severity Reaction Status Date / Time Sulfa (Sulfonamide AdvReac Upset Verified 10/07/22 11:57 Antibiotics) Stomach Family History Mother Hypertension Father HLD (hyperlipidemia) Sister Hypertension Daughter Seizures Grandfather Heart disease Uncle Colon cancer Diabetes Surgical History History of tricuspid valve replacement (08/18/14) hx mediastinal hemorrhage Hx of cataract surgery Hx of laminectomy PICC (peripherally inserted central catheter) in place Social History (Updated 09/07/22 @ 15:53 by Yoli Bhatti) Smoking Status: Never smoker second hand exposure: No alcohol intake: current alcohol intake frequency: holidays/special occasions only Alcohol type: beer and hard liquor substance use type: does not use burt/mu-ism: Gnosticist seatbelt use: sometimes ROS <WILMER Soriano - Last Filed: 10/07/22 14:19> ROS ED ROS Narrative Constitutional: Positive for fever, chills. CVS: Negative for palpitations, chest pain. Respiratory: Negative for shortness of breath, cough. GI: Negative for abdominal pain, nausea, vomiting. : Negative for dysuria. Neuro: Negative for motor/sensory dysfunction. Skin: Positive for erythema of right lower leg. No wound. Musc: Negative for joint pain, trauma. Heme: Negative for easy bruising, bleeding, lymphadenopathy. EXAM <WILMER Soriano - Last Filed: 10/07/22 14:19> Physical Exam Narrative Exam Narrative: CONST: Patient sitting in no acute distress. EYES: Normal inspection. NECK: Normal inspection. RESP: No respiratory distress, CTAB. CVS: Regular rate and rhythm, no murmur, no gallop. SKIN: Circumferential patchy erythema of the lower leg from the knee to the ankle and then patchy erythema extending up the medial thigh to the groin but no genital involvement. Warm to touch, no breaks in the skin or wounds. No crepitus or fluctuance. EXTREMITIES: Full ROM of lower extremities, no bony tenderness, 2+ DP pulses. NEURO: Oriented x4. PSYCH: Normal affect. Const Vital Signs: 10/07/22 11:55 10/07/22 12:05 10/07/22 13:17 Temperature 97.1 F L 97.8 F Temperature Source Temporal Temporal Pulse Rate 86 89 Respiratory Rate 88 H 18 Respiratory Effort Normal Non-Labored Blood Pressure 147/119 H 100/71 Blood Pressure Mean 128 80 Pulse Ox 98 97 Oxygen Delivery Method Room Air <Dr. Jordyn Ramesh MD - Last Filed: 10/07/22 14:07> Physical Exam Const Vital Signs: 10/07/22 11:55 10/07/22 12:05 10/07/22 13:17 Temperature 97.1 F L 97.8 F Temperature Source Temporal Temporal Pulse Rate 86 89 Respiratory Rate 88 H 18 Respiratory Effort Normal Non-Labored Blood Pressure 147/119 H 100/71 Blood Pressure Mean 128 80 Pulse Ox 98 97 Oxygen Delivery Method Room Air MDM <WILMER Soriano - Last Filed: 10/07/22 14:19> [facility] Narrative Medical decision making narrative: History gathered from: Patient and Patient has had 3 days of right lower leg redness and has been taking Keflex 4 times daily x 2.5 days with slight improvement. He appears well and nontoxic. He was hypertensive with otherwise normal vital signs. There is erythema of the entire lower leg from the knee to the ankle and patchy erythema extending up the medial thigh to the groin. It is warm to the touch. There is no fluctuance or crepitus. Extremity is neurovascularly intact. Labs and blood cultures will be drawn and he was treated with a dose of IV vancomycin. Labs show normal white count at 6.8, BMP shows normal electrolytes and slight bump in creatinine to 1.33. Ultrasound of the leg was ordered to rule out DVT and is pending although I have low suspicion for this. With the extent of his cellulitis I think he needs admission for IV antibiotics. Case was discussed with the hospitalist for admission. Differential: Right lower extremity cellulitis, I do not think this is necrotizing fasciitis, no signs of abscess, DVT Lab Data Attestation: I reviewed the patient's lab results. Labs: Laboratory Results - last 24 hr 10/07/22 10/07/22 12:30 12:30 WBC 6.8 RBC 5.20 Hgb 15.3 Hct 45.3 MCV 87.1 D MCH 29.4 MCHC 33.8 RDW Std Deviation 40.7 RDW Coeff of Ga 12.9 Plt Count 235 MPV 9.1 Immature Gran % (Auto) 0.400 Neut % (Auto) 71.5 H Lymph % (Auto) 18.3 L [place] % (Auto) 8.7 Eos % (Auto) 1.0 Baso % (Auto) 0.1 Absolute Neuts (auto) 4.8 Absolute Lymphs (auto) 1.24 Nucleated RBC % 0 Sodium 137 Potassium 3.3 L Chloride 97 L Carbon Dioxide 30.0 Anion Gap 10 BUN 17 Creatinine 1.33 H Estim Creat Clear Calc 50.63 Est GFR (MDRD) Af Amer 70 Est GFR (MDRD) Non-Af 57 L BUN/Creatinine Ratio 12.8 Glucose 121 H Calcium 9.6 <Dr. Jordyn Ramesh MD - Last Filed: 10/07/22 14:07> [facility] Lab Data Labs: Laboratory Results - last 24 hr 10/07/22 10/07/22 12:30 12:30 WBC 6.8 RBC 5.20 Hgb 15.3 Hct 45.3 MCV 87.1 D MCH 29.4 MCHC 33.8 RDW Std Deviation 40.7 RDW Coeff of Ga 12.9 Plt Count 235 MPV 9.1 Immature Gran % (Auto) 0.400 Neut % (Auto) 71.5 H Lymph % (Auto) 18.3 L [place] % (Auto) 8.7 Eos % (Auto) 1.0 Baso % (Auto) 0.1 Absolute Neuts (auto) 4.8 Absolute Lymphs (auto) 1.24 Nucleated RBC % 0 Sodium 137 Potassium 3.3 L Chloride 97 L Carbon Dioxide 30.0 Anion Gap 10 BUN 17 Creatinine 1.33 H Estim Creat Clear Calc 50.63 Est GFR (MDRD) Af Amer 70 Est GFR (MDRD) Non-Af 57 L BUN/Creatinine Ratio 12.8 Glucose 121 H Calcium 9.6 Treatment and Re-Evaluation :: Patient seen and evaluated with GLENN. I personally interviewed and examined the patient. I was involved in all aspects of patient's orders, interpretation of results, and treatment. Patient presents with cellulitis to the entire right thigh. He reports minimal improvement after being on Keflex for the last 2 and half days. He initially had fevers which are currently improved. Patient does have a history of endocarditis. Patient sitting upright in bed no acute distress. Head and neck examination unremarkable. Heart is regular rate and rhythm. Lung sounds are clear. Abdomen is soft and nontender. Lower extremity examination reveals significant erythema and warmth to the right thigh from the ankle to the groin. No open wounds or lesions are noted. Lab work obtained along with blood cultures. Patient given a dose of IV vancomycin. Patient will be discussed with hospitalist for admission and IV antibiotics. Discharge Plan Triage Chief Complaint: Cellulitis ED Midlevel Provider: Anuradha Nieto ED Provider: Jordyn Ramesh Dx/Rx/DC Orders Clinical Impression: Cellulitis of right leg, Failure of outpatient treatment Prescriptions: No Action aspirin [Adult Low Dose Aspirin] 81 mg tablet,delayed release (DR/EC) 81 mg PO QDAY triamcinolone acetonide [Nasacort] 55 mcg aerosol,spray 1 spray INTRANASAL QDAY PRN (Reason: Allergy Symptoms) cholecalciferol (vitamin D3) 25 mcg (1,000 unit) capsule 25 mcg PO DAILY levetiracetam 1,000 mg tablet 1,000 mg PO BID Qty: 180 2RF multivitamin 1 EACH tablet 1 ea PO DAILY cephalexin 500 mg capsule 500 mg PO 4XD Label Comments: TAKE 1 CAPSULE BY MOUTH 4 TIMES DAILY FOR 14 DAYS loratadine 10 mg Tablet 10 mg PO DAILY pravastatin 40 mg tablet 40 mg PO QHS Qty: 90 3RF lisinopril 20 mg tablet 20 mg PO QDAY Qty: 90 3RF hydrochlorothiazide 25 mg tablet 25 mg PO QDAY Qty: 90 3RF Primary Care Provider: Esteban Hensley Referrals: Esteban Hensley MD [Primary Care Provider] -
[2022-10-07 12:53] LABS: Absolute Lymphocyte Count 1.24 X10^3/uL (0.83-4.51); Absolute Neutrophil Count 4.8 X10^3/uL (2.0-7.7); Basophil# 0.01 X10^3/uL; Basophil% 0.1 % (0-1); Eosinophil# 0.07 X10^3/uL; Hematocrit 45.3 % (40-54); Hemoglobin 15.3 g/dL (13.0-16.5); Lymphocyte # 1.24 X10^3/ul (0.83-4.51); Lymphocyte % 18.3 % (19-41); Mean Corp Hgb Conc 33.8 g/dL (32-36); Mean Corpuscular Hgb 29.4 pg (27.0-32.0); Mean Corpuscular Volume 87.1 fL (80-94); Mean Platelet Vol. 9.1 fl (6.2-12.0); Monocyte# 0.59 X10^3/uL; Monocyte% 8.7 % (0-10); NRBC Flagged by Analyzer 0 % (0-5); Neutrophil # 4.84 X10^3/uL (2.7-7.7); Neutrophil % 71.5 % (47-70); Platelet Count 235 K/mm3 (150-450); RBC Distribution Width CV 12.9 % (11.6-14.6); RBC Distribution Width SD 40.7 fl (35.1-43.9); White Blood Count 6.8 K/mm3 (4.4-11.0)
[2022-10-07 13:01] LABS: Anion Gap 10 (5-15); BUN 17 mg/dL (7-18); BUN/Creat Ratio 12.8 RATIO (10-20); Calcium,Total 9.6 mg/dL (8.5-10.1); Chloride 97 mmol/L (98-107); Creatinine, Serum 1.33 mg/dL (0.70-1.30); EST Glomerular Filtration Rate 57 mL/min (>60); Est Glom Filt Rate - Afr Amer 70 mL/min (>60); Estimated Creatinine Clearance 50.63 ml/min; Glucose 121 mg/dL (74-106); Potassium 3.3 mmol/L (3.5-5.1); Sodium Level 137 mmol/L (136-145)
[2022-10-07 13:17] VITALS: BP 100/71; PULSE 89; RESP 18; TEMP 36.6; O2SAT 97
[2022-10-07 14:35] VITALS: BP 131/77; PULSE 85; RESP 18; TEMP 36.7; O2SAT 100
--- NOTE | 2022-10-07 14:46 | PCM.HP.STD ---
HPI - General General Date of Admission: 10/07/22 Date of Service: 10/07/22 Chief Complaint: Right lower extremity cellulitis HPI Narrative NADIA BECERRIL, is a 62 M who presented to the emergency department at [facility] on 10/07/2022 with right lower extremity erythema and swelling. The patient started having some chills and malaise/weakness early last week and his then noticed that his leg was red. They went to the urgent care 2-1/2 days ago and they placed him on Keflex. Overall he indicates he is feeling better however the redness in his leg is still pretty significant. He feels that the swelling is better. He has had no fever or chills since antibiotics were started and the pain in his leg has improved as well. His had him come to the emergency department today given the leg is still fairly red and extends from his groin all the way down to his ankle. He has no erythema of his foot. He denies any known injuries to the soft tissue and is unclear where this has originated from however he does report he has a history of right lower extremity cellulitis. He also admits to having history of endocarditis that required tricuspid valve replacement due to a urinary tract infection. This tricuspid valve replacement was performed on 08/18/2014. Vital signs on presentation show a temperature of 98.1, blood pressure 131/77, heart rates 85, respiratory rate 18, oxygen saturation 100% on room air. His CBC is unremarkable showing only a very minimal left shift with a 71.5% neutrophilia. His BMP shows mild hypokalemia with potassium of 3.3 and his serum creatinine is slightly elevated from his baseline at 1.3 (baseline 1.1-1.2). His serum glucose was slightly elevated 121. It does not appear he has a history of diabetes. His right lower extremity is swollen and erythematous from his groin down to his ankle and I did outline the area with a skin marker. The emergency department blood cultures were obtained and he was started on IV antibiotics. Request for admission was made given the extensiveness of his right lower extremity cellulitis. I did find a nidus for infection on the plantar surface of his right foot. He does have a crack in the area of a callus which I suspect is origination of his infection. No other open lesions were noted. [facility] Medical History BiPAP (biphasic positive airway pressure) dependence Bronchitis Cardiology follow-up encounter Cellulitis Cerebrovascular disease CVA (cerebral vascular accident) DVT (deep venous thrombosis) Endocarditis of tricuspid valve Enterococcal bacteremia Epidural abscess Epilepsy, unspecified, not intractable, without status epilepticus Essential hypertension History of edema History of stress test Hx of sepsis Hyperlipidemia Increased ammonia level Iron deficiency anemia Lung nodule Non-rheumatic tricuspid valve insufficiency Non-smoker Obesity Obstructive sleep apnea Pulmonary emboli Renal insufficiency Seizures Sleep apnea Venous insufficiency of both lower extremities Wears dentures Wears glasses Wears partial dentures Home Medications multivitamin 1 ea PO DAILY 01/03/16 [History Last Taken 10/07/22] aspirin 81 mg tablet,delayed release (Adult Low Dose Aspirin) 81 mg PO QDAY 12/17/17 [History Last Taken 10/07/22] triamcinolone acetonide 55 mcg nasal spray aerosol (Nasacort) 1 spray intranasal QDAY PRN Allergy Symptoms 12/18/17 [History Last Taken Unknown] cholecalciferol (vitamin D3) 25 mcg (1,000 unit) capsule 25 mcg PO DAILY 05/09/22 [History Last Taken 10/07/22] hydrochlorothiazide 25 mg tablet 25 mg PO QDAY #90 tabs 06/26/22 [Rx Last Taken 10/07/22] lisinopril 20 mg tablet 20 mg PO QDAY #90 tabs 06/26/22 [Rx Last Taken 10/07/22] pravastatin 40 mg tablet 40 mg PO QHS #90 tabs 06/26/22 [Rx Last Taken 10/06/22] levetiracetam 1,000 mg tablet 1,000 mg PO BID #180 tabs 09/07/22 [Rx Last Taken 10/07/22] cephalexin 500 mg capsule 500 mg PO 4XD . 10/07/22 [History Last Taken 10/07/22] loratadine 10 mg tablet 10 mg PO DAILY ALLERGIES 10/07/22 [History Last Taken 10/07/22] Allergy/AdvReac Type Severity Reaction Status Date / Time Sulfa (Sulfonamide AdvReac Upset Verified 10/07/22 11:57 Antibiotics) Stomach Family History Mother Hypertension Father HLD (hyperlipidemia) Sister Hypertension Daughter Seizures Grandfather Heart disease Uncle Colon cancer Diabetes Surgical History History of tricuspid valve replacement (08/18/14) hx mediastinal hemorrhage Hx of cataract surgery Hx of laminectomy PICC (peripherally inserted central catheter) in place Social History (Updated 10/07/22 @ 14:[address] Jocelyne Schuster DO) household members: spouse housing: house Smoking Status: Never smoker second hand exposure: No alcohol intake: current alcohol intake frequency: holidays/special occasions only Alcohol type: beer and hard liquor substance use type: does not use burt/mu-ism: Buddhist seatbelt use: sometimes ROS Constitutional Constitutional: Reports chills, fever(s) and malaise; Denies anorexia, change in weight, fatigue, night sweats, weakness or other Eyes Eyes: Denies blurry vision, change in eye color, change in vision, discharge from eye(s), double vision, erythema, eye pain, loss of vision or other ENT HEENT: Denies abnormal hearing, dysphagia, ear pain, epistaxis, headache(s), hearing loss, nasal congestion, nasal discharge, post nasal drip, sinus pressure, sore throat or other Cardiovascular Cardiovascular: Denies chest pain, claudication, dyspnea on exertion, edema, lightheadedness, orthopnea, palpitations, paroxysmal nocturnal dyspnea, rapid heart rate, syncope or other Respiratory/Chest Respiratory/Chest: Denies cough, dyspnea, excessive phlegm production, hemoptysis, productive cough, shortness of breath at rest, shortness of breath with exertion, wheezing or other Gastrointestinal Gastrointestinal: Denies abdominal pain, coffee ground emesis, constipation, diarrhea, dyspepsia, hematemesis, hematochezia, loose stools, melena, nausea, vomiting or other Genitourinary Genitourinary: Denies burning urination, difficulty urinating, dysuria, hematuria, nocturia, urinary frequency, urinary hesitancy, urinary incontinence, urinary urgency or other Musculoskeletal Musculoskeletal: Reports other Details: Right lower extremity pain and swelling/erythema ; Denies arthralgias, back pain, joint pain, joint stiffness, joint swelling, myalgias or neck pain Neurologic Neurologic: Denies abnormal gait, abnormal speech, confusion, disequilibrium, dizziness, focal weakness, headache(s), numbness, paresthesias, seizure-like activity, seizures, syncope, tingling, tremor(s) or other Psychiatric Psychiatric: Denies anxiety, depression, homicidal ideation, suicidal ideation or other Endocrine Endocrinology: Denies change in body appearance, cold intolerance, excessive sweating, heat intolerance, polydipsia, polyuria or other Hematologic/Lymphatic Hematologic/Lymphatic: Denies anemia, easy bleeding, easy bruising, lymphadenopathy or other Allergic/Immunologic Allergic/Immunologic: Denies rhinitis, hives, eczemia, asthma or other Vital Signs Vital Signs Vital Signs: 10/07/22 11:55 10/07/22 12:05 10/07/22 13:17 Temperature 97.1 F L 97.8 F Temperature Source Temporal Temporal Pulse Rate 86 89 Respiratory Rate 88 H 18 Respiratory Effort Normal Non-Labored Blood Pressure 147/119 H 100/71 Blood Pressure Mean 128 80 Pulse Ox 98 97 Oxygen Delivery Method Room Air 10/07/22 14:35 Temperature 98.1 F Temperature Source Temporal Pulse Rate 85 Respiratory Rate 18 Respiratory Effort Blood Pressure 131/77 H Blood Pressure Mean 95 Pulse Ox 100 Oxygen Delivery Method Room Air Weight Weight: 151.046 kg Body Mass Index (BMI) 53.7 Physical Exam Const alert, oriented x3, no apparent distress, healthy appearing and well nourished Constitutional Narrative: Morbidly obese, upper middle-aged, white male sitting up in bed, at bedside, patient appears comfortable and nontoxic General Appearance: cooperative HEENT normocephalic, head/scalp atraumatic, hearing grossly normal bilaterally and moist oral mucous membranes HEENT Narrative: Mallampati is 3-4, dentition is good, no thrush Eyes PERRL, EOMs intact bilaterally and conjunctivae normal Neck no lymphadenopathy and supple Neck Narrative: Neck is short and thick, trachea midline, no thyroid enlargement Resp normal respiratory effort, no retractions, no use of accessory muscles and clear to auscultation bilaterally Auscultation: Negative for rales, rhonchi or wheezes Cardio regular rate, regular rhythm, S1 normal heart sound, S2 normal heart sound, no murmurs, no rub, no gallops and no clicks GI normal to inspection, nondistended, normoactive bowel sounds, soft to palpation and non-tender Extremity Extremity Narrative: Right lower extremity is erythematous from his groin to his ankle some of it is circumferential some of it is not, there is increased swelling, no severe tenderness, the plantar aspect of his right foot there is a crack which is likely the nidus for his and infection, it is in the area of a callus, no cyanosis or clubbing, left lower extremity is within normal limits Neuro oriented x3, CN's II-XII intact bilaterally, moves all extremities and no focal motor deficits Neuro Narrative: Plantar sensory deficits bilateral feet Speech: speech normal Motor Exam: strength 5/5 throughout Psych affect normal Psych Narrative: Very pleasant, appropriately interactive Results Lab / Micro Data Attestation: I reviewed the patient's lab results. Result Diagrams: 10/07/22 12:30 10/07/22 12:30 Labs: Laboratory Results - last 24 hr 10/07/22 12:30: WBC 6.8, RBC 5.20, Hgb 15.3, Hct 45.3, MCV 87.1 D, MCH 29.4, MCHC 33.8, RDW Std Deviation 40.7, RDW Coeff of Ga 12.9, Plt Count 235, MPV 9.1, Immature Gran % (Auto) 0.400, Neut % (Auto) 71.5 H, Lymph % (Auto) 18.3 L, [place] % (Auto) 8.7, Eos % (Auto) 1.0, Baso % (Auto) 0.1, Absolute Neuts (auto) 4.8, Absolute Lymphs (auto) 1.24, Nucleated RBC % 0 10/07/22 12:30: Sodium 137, Potassium 3.3 L, Chloride 97 L, Carbon Dioxide 30.0, Anion Gap 10, BUN 17, Creatinine 1.33 H, Estim Creat Clear Calc 50.63, Est GFR (MDRD) Af Amer 70, Est GFR (MDRD) Non-Af 57 L, BUN/Creatinine Ratio 12.8, Glucose 121 H, Calcium 9.6 Assessment & Plan Assessment/Plan (1) Cellulitis of right leg: (2) Elevated serum creatinine: (3) Hypokalemia: PLAN: Plan Right lower extremity cellulitis -Was on Keflex 4 times daily for 2-1/2 days however erythema had not improved much -We will broaden to Zosyn to cover for Pseudomonas and add MRSA coverage with vancomycin -Blood cultures were obtained on admission -Check hemoglobin A1c as blood sugar on presentation was 121 -Eucerin to bilateral feet twice daily with socks applied afterwards to allow for healing of the plantar aspect of his feet] -Right lower extremity venous duplex is pending Hypokalemia -40 mill equivalent p.o. potassium Serum creatinine elevation -Baseline serum creatinine appears to be between 1.1 and 1.2 -Serum creatinine admission is 1.33 -1 L IV fluids -Repeat in a.m. Hypertension -Continue home HCTZ -Continue home lisinopril Hyperlipidemia -Continue home pravastatin [place] -Continue home nocturnal CPAP Seizure disorder -Continue home Keppra History of PE/DVT -Associated with immobility -Has completed anticoagulation and not anticoagulated at this time Allergies -Continue loratadine -Continue nasal spray History of stroke -Continue aspirin DVT prophylaxis -Lovenox 40 mg twice daily CODE STATUS -full code Charges/Coding Visit Charges Inpatient E&M: 58063 Init Hosp L2
[2022-10-07 15:19] VITALS: BMI 50.6
--- NOTE | 2022-10-07 15:26 | PCM.RX.CS ---
Consult Pharmacy has been consulted to manage selected antiobiotic: Vancomycin Type of Consult: New start Suspected Infection: Skin/Soft tissue Labs: Sodium 137 mmol/L (136-145) 10/07/22 12:30 Potassium 3.3 mmol/L (3.5-5.1) L 10/07/22 12:30 Chloride 97 mmol/L (98-107) L 10/07/22 12:30 Carbon Dioxide 30.0 mmol/L (21.0-32.0) 10/07/22 12:30 Anion Gap 10 (5-15) 10/07/22 12:30 BUN 17 mg/dL (7-18) 10/07/22 12:30 Creatinine 1.33 mg/dL (0.70-1.30) H 10/07/22 12:30 Est GFR (MDRD) Af Amer 70 mL/min (>60) 10/07/22 12:30 Est GFR (MDRD) Non-Af 57 mL/min (>60) L 10/07/22 12:30 BUN/Creatinine Ratio 12.8 RATIO (10-20) 10/07/22 12:30 Glucose 121 mg/dL (74-106) H 10/07/22 12:30 Pharmacy Plan for Drug Dosing: NEW START IV VANCOMYCIN Consulting Physician: Boom ZAPIEN Indication: CELLULITIS Goal Trough: 10-15 MG/DL SrCr: 1.33 MG/DL (10/07/22) CrCl: 78.4 ML/MIN USING ADJUSTED BODY WEIGHT Comments: ER LOADING DOSE OF 2000MG GIVEN @ 1312 Vancomycin Dose: WILL START 1250MG Q12 AND GET A LEVEL PRIOR TO 4TH TOTAL DOSE PER POLICY. Pending Level: 10/09/22 @ 0030 Pharmacy Service will continue to monitor and adjust dosing as required.
[2022-10-07 15:29] LABS: Hemoglobin A1c 5.8 % (3.8-5.6)
[2022-10-07 15:31] VITALS: BP 152/94; PULSE 77; RESP 16; TEMP 37; O2SAT 99
[2022-10-07] MEDS: Lactated Ringers 1,000 ML 75 ML IV (15:46)
[2022-10-07] MEDS: Potassium Chloride Oral Tablet 20 MEQ 40 MEQ PO (15:46)
[2022-10-07 20:01] VITALS: BP 138/67; PULSE 88; RESP 16; TEMP 37.3; O2SAT 96
[2022-10-07] MEDS: Petrolatum 33% Tube 1 APPLIC TOPICAL (20:15)
[2022-10-07] MEDS: Enoxaparin 40 MG/0.4 ML Syringe SC (20:16)
[2022-10-07] MEDS: Acetaminophen 500 MG Tablet 1000 MG PO (20:17)
[2022-10-07] MEDS: levETIRAcetam 1,000 MG Tablet 1000 MG PO (20:17)
[2022-10-07] MEDS: Pravastatin 40 MG Tablet PO (20:17)
[2022-10-07 22:55] VITALS: O2SAT 96
[2022-10-08 02:01] VITALS: BP 123/75; PULSE 68; RESP 16; TEMP 36.6; O2SAT 98
[2022-10-08] MEDS: Acetaminophen 500 MG Tablet 1000 MG PO ×3 (05:22→20:30)
[2022-10-08 05:28] LABS: Absolute Lymphocyte Count 1.34 X10^3/uL (0.83-4.51); Absolute Neutrophil Count 5.2 X10^3/uL (2.0-7.7); Basophil# 0.03 X10^3/uL; Basophil% 0.4 % (0-1); Eosinophil# 0.16 X10^3/uL; Eosinophils% 2.1 % (0-5); Hematocrit 42.5 % (40-54); Hemoglobin 14.3 g/dL (13.0-16.5); Lymphocyte # 1.34 X10^3/ul (0.83-4.51); Lymphocyte % 17.6 % (19-41); Mean Corp Hgb Conc 33.6 g/dL (32-36); Mean Corpuscular Hgb 29.2 pg (27.0-32.0); Mean Corpuscular Volume 86.7 fL (80-94); Mean Platelet Vol. 9.2 fl (6.2-12.0); Monocyte# 0.88 X10^3/uL; Monocyte% 11.5 % (0-10); NRBC Flagged by Analyzer 0 % (0-5); Neutrophil # 5.16 X10^3/uL (2.7-7.7); Neutrophil % 67.7 % (47-70); Platelet Count 227 K/mm3 (150-450); RBC Distribution Width CV 12.8 % (11.6-14.6); RBC Distribution Width SD 40.4 fl (35.1-43.9); White Blood Count 7.6 K/mm3 (4.4-11.0)
[2022-10-08 05:49] LABS: ALB/GLOB Ratio 0.6 RATIO (0.9-2.4); AST(SGOT) 34 U/L (15-37); Alanine Aminotransfer ALT/SGPT 38 U/L (16-61); Albumin, Serum 2.7 g/dL (3.2-5.0); Alkaline Phosphatase 68 U/L (45-117); Anion Gap 9 (5-15); BUN 14 mg/dL (7-18); BUN/Creat Ratio 12.7 RATIO (10-20); Calcium,Total 8.9 mg/dL (8.5-10.1); Chloride 103 mmol/L (98-107); EST Glomerular Filtration Rate 72 mL/min (>60); Est Glom Filt Rate - Afr Amer 87 mL/min (>60); Estimated Creatinine Clearance 61.22 ml/min; Globulin 4.5 g/dL (2.2-4.2); Glucose 100 mg/dL (74-106); Phosphorus 3.2 mg/dL (2.5-4.9); Potassium 3.4 mmol/L (3.5-5.1); Protein, Total 7.2 g/dL (6.4-8.2); Sodium Level 138 mmol/L (136-145); Thyroid Stim Hormone (TSH) 2.49 uIU/mL (0.358-3.74)
[2022-10-08 08:01] VITALS: BP 137/87; PULSE 73; RESP 18; TEMP 36.6; O2SAT 98
[2022-10-08] MEDS: Potassium Chloride Oral Tablet 20 MEQ 40 MEQ PO (08:13)
[2022-10-08] MEDS: Aspirin E.C. 81 MG Tablet PO (08:13)
[2022-10-08 09:00] VITALS: PULSE 73; RESP 18; O2SAT 98
[2022-10-08] MEDS: Petrolatum 33% Tube 1 APPLIC TOPICAL ×2 (11:02→20:27)
[2022-10-08] MEDS: Loratadine 10 MG Tablet PO (11:02)
[2022-10-08] MEDS: Enoxaparin 40 MG/0.4 ML Syringe SC ×2 (11:03→20:29)
[2022-10-08] MEDS: levETIRAcetam 1,000 MG Tablet 1000 MG PO ×2 (11:03→20:29)
[2022-10-08] MEDS: hydroCHLOROthiazide 25 MG Tablet PO (11:03)
[2022-10-08] MEDS: Cholecalciferol (VIT D3) 25 MCG TABLET (1,000 UNITS) PO (11:04)
[2022-10-08] MEDS: Lisinopril 20 MG Tablet PO (11:04)
[2022-10-08 12:09] LABS: M R Staph aureus DNA By PCR Negative (Negative); Probe Check PASS; Specimen Processing Control PASS
[2022-10-08 14:00] VITALS: BP 119/83; PULSE 84; RESP 18; TEMP 36.6; O2SAT 98
[2022-10-08 15:00] VITALS: PULSE 84; RESP 18; O2SAT 98
--- NOTE | 2022-10-08 16:30 | PCM.PN.HOSP ---
Reason for Visit Reason for Visit: Diagnoses Hypokalemia (10/07/22) Cellulitis of right lower limb (10/07/22) Other specified abnormal findings of blood chemistry (10/07/22) Subjective Subjective Continues to have significant erythema and swelling, is down from yesterday but still prominent. Tight feeling improving Objective Data Objective Data Vital Signs: Vital Signs Temp Pulse Resp BP Pulse Ox O2 Del Method 97.8 F 84 18 119/83 H 98 Room Air 10/08/22 14:00 10/08/22 15:00 10/08/22 15:00 10/08/22 14:00 10/08/22 15:00 10/08/22 15:00 Oxygen Delivery Method Room Air Weight: 142.428 kg Body Mass Index (BMI) 50.6 Intake & Output: Intake and Output for Last 24 Hours 10/06/22 10/07/22 10/08/22 23:59 23:59 23:59 Intake Total 890 / 890 3175 / 3175 Balance 890 / 890 3175 / 3175 Lab / Micro Data Result Diagrams: 10/08/22 05:08 10/08/22 05:08 Labs: Laboratory Results - last 24 hr 10/08/22 05:08: WBC 7.6, RBC 4.90, Hgb 14.3, Hct 42.5, MCV 86.7, MCH 29.2, MCHC 33.6, RDW Std Deviation 40.4, RDW Coeff of Ga 12.8, Plt Count 227, MPV 9.2, Immature Gran % (Auto) 0.700, Neut % (Auto) 67.7, Lymph % (Auto) 17.6 L, Aurora % (Auto) 11.5 H, Eos % (Auto) 2.1, Baso % (Auto) 0.4, Absolute Neuts (auto) 5.2, Absolute Lymphs (auto) 1.34, Nucleated RBC % 0 10/08/22 05:08: Sodium 138, Potassium 3.4 L, Chloride 103, Carbon Dioxide 26.0, Anion Gap 9, BUN 14, Creatinine 1.10, Estim Creat Clear Calc 61.22, Est GFR (MDRD) Af Amer 87, Est GFR (MDRD) Non-Af 72, BUN/Creatinine Ratio 12.7, Glucose 100, Calcium 8.9, Phosphorus 3.2, Magnesium 2.0, Total Bilirubin 1.00, AST 34, ALT 38, Alkaline Phosphatase 68, Total Protein 7.2, Albumin 2.7 L, Globulin 4.5 H, Albumin/Globulin Ratio 0.6 L, TSH 2.49 10/08/22 08:00: MRSA (PCR) Negative Physical Exam Narrative General: Alert, oriented, no apparent distress HEENT: Atraumatic, normocephalic Eyes: Anicteric, normal conjunctiva, extraocular movements grossly intact Neck: Supple Respiratory: Clear to auscultation bilaterally, normal respiratory effort Cardiovascular: Regular rate and rhythm GI: Soft, nontender, nondistended Extremities: No edema Musculoskeletal: Moving all extremities Neuro: No overt focal neurological deficits Skin: Right leg with line drawn around cellulitis, still has significant erythema with some warmth and swelling but is beginning to receded from line Psych: Cooperative Assessment & Plan Assessment/Plan (1) Cellulitis of right leg: (2) Elevated serum creatinine: (3) Hypokalemia: PLAN: Plan #Right lower extremity cellulitis -Was on Keflex 4 times daily for 2-1/2 days however erythema had not improved much -We will broaden to Zosyn to cover for Pseudomonas and add MRSA coverage with vancomycin -Blood cultures were obtained on admission -Check hemoglobin A1c as blood sugar on presentation was 121 -Eucerin to bilateral feet twice daily with socks applied afterwards to allow for healing of the plantar aspect of his feet] -Right lower extremity venous duplex is pending -10/08: Is beginning to receding from line that has been marked but does still have some significant erythema and has some warmth and swelling. Venous duplex pending. #Hypokalemia -40 mill equivalent p.o. potassium -10/08: Replaced again #Serum creatinine elevation -Baseline serum creatinine appears to be between 1.1 and 1.2 -Serum creatinine admission is 1.33 -1 L IV fluids -Repeat in a.m. 10/08: Creatinine improved to 1.1 #Hypertension -Continue home HCTZ -Continue home lisinopril #Hyperlipidemia -Continue home pravastatin #JACKSON -Continue home nocturnal CPAP #Seizure disorder -Continue home Keppra #History of PE/DVT -Associated with immobility -Has completed anticoagulation and not anticoagulated at this time -Venous duplex pending #Allergies -Continue loratadine -Continue nasal spray #History of stroke -Continue aspirin #DVT prophylaxis -Lovenox 40 mg twice daily Charges/Coding Visit Charges Inpatient E&M: 24951 Subs Hosp L2
[2022-10-08 20:24] VITALS: BP 115/70; PULSE 76; RESP 16; TEMP 36.6; O2SAT 98
[2022-10-08] MEDS: Pravastatin 40 MG Tablet PO (20:30)
[2022-10-09 01:48] LABS: Vancomycin, Trough Level 12.3 ug/mL (5.0-15.0)
--- NOTE | 2022-10-09 02:06 | PCM.RX.CS ---
Consult Pharmacy has been consulted to manage selected antiobiotic: Vancomycin Type of Consult: Follow-up Suspected Infection: Skin/Soft tissue Prior Doses of Antibiotics Received/Current Regimen: Medications Vancomycin HCl 1,750 mg/ (Sodium Chloride) 535 mls @ 250 mls/hr IV Q12H ELIZABETH Vancomycin HCl 1,250 mg/ (Sodium Chloride) 275 mls @ 167 mls/hr IV Q12H ELIZABETH Stop: 10/09/22 03:00 Last Admin: 10/09/22 00:44 Dose: 167 mls/hr Labs: Sodium 138 mmol/L (136-145) 10/08/22 05:08 Potassium 3.4 mmol/L (3.5-5.1) L 10/08/22 05:08 Chloride 103 mmol/L (98-107) 10/08/22 05:08 Carbon Dioxide 26.0 mmol/L (21.0-32.0) 10/08/22 05:08 Anion Gap 9 (5-15) 10/08/22 05:08 BUN 14 mg/dL (7-18) 10/08/22 05:08 Creatinine 1.10 mg/dL (0.70-1.30) 10/08/22 05:08 Est GFR (MDRD) Af Amer 87 mL/min (>60) 10/08/22 05:08 Est GFR (MDRD) Non-Af 72 mL/min (>60) 10/08/22 05:08 BUN/Creatinine Ratio 12.7 RATIO (10-20) 10/08/22 05:08 Glucose 100 mg/dL (74-106) 10/08/22 05:08 Vancomycin Trough 12.3 ug/mL (5.0-15.0) 10/09/22 01:05 Weight used for dosin.4 kg Estimated Creatinine Clearance: 91.4 Pharmacy Plan for Drug Dosing: Vancomycin trough level of 12.3 was within the target range of 10-15. Will continue dosing at 1250mg q12h, and draw another trough in two days. Pharmacy Service will continue to monitor and adjust dosing as required. Follow-Up Labs: Trough Vancomycin Labs to be done on [date and time ordered]: 10/11/22 @0030
[2022-10-09] MEDS: Acetaminophen 500 MG Tablet 1000 MG PO (06:02)
[2022-10-09 06:07] VITALS: BP 115/66; PULSE 69; RESP 16; TEMP 36.5; O2SAT 97
--- NOTE | 2022-10-09 08:52 | PN.HOSP_ITS ---
Reason for Visit Reason for Visit: Diagnoses Hypokalemia (10/07/22) Cellulitis of right lower limb (10/07/22) Other specified abnormal findings of blood chemistry (10/07/22) Subjective Subjective Jeff is a 62-year-old gentleman admitted with right lower extremity redness and swelling. He had apparently been treated with Keflex as an outpatient for cellulitis he however did not improve his decision to present to the emergency department. Objective Data Objective Data Vital Signs: Vital Signs Temp Pulse Resp BP Pulse Ox O2 Del Method 97.7 F L 69 16 115/66 97 Room Air 10/09/22 06:07 10/09/22 06:07 10/09/22 06:07 10/09/22 06:07 10/09/22 06:07 10/09/22 06:07 Oxygen Delivery Method Room Air Weight: 142.428 kg Body Mass Index (BMI) 50.6 Intake & Output: Intake and Output for Last 24 Hours 10/07/22 10/08/22 10/09/22 23:59 23:59 23:59 Intake Total 890 / 890 4000 / 4000 725 / 725 Balance 890 / 890 4000 / 4000 725 / 725 Lab / Micro Data Result Diagrams: 10/08/22 05:08 10/08/22 05:08 Labs: Laboratory Results - last 24 hr 10/08/22 08:00: MRSA (PCR) Negative 10/09/22 01:05: Vancomycin Trough 12.3 Physical Exam Narrative GENERAL: cooperative HEENT: Atraumatic; normocephalic EYES; Anicteric, Normal Conjunctiva NECK; supple, normal thyroid, RESPIRATORY: Diminished to auscultation CARDIOVASCULAR: Regular S1 S2, GI: soft, normoactive bowel sounds, : No Renal angle tenderness; EXTREMITIES: No edema, no clubbing, MUSCULOSKELETAL: no muscle wasting NEURO: Awake; no lateralizing signs. SKIN: Erythema and warmth involving the right lower extremity PSYCH; Flat affect Assessment & Plan Assessment/Plan (1) Cellulitis of right leg: (2) Elevated serum creatinine: (3) Hypokalemia: PLAN: Plan Patient is a 62-year-old gentleman admitted with right lower extremity redness and swelling. He had apparently been treated with Keflex as an outpatient for cellulitis he however did not improve his decision to present to the emergency department. 1. Right lower extremity cellulitis ? Patient did failed outpatient treatment with Keflex. Admitted to regular nursing floor antibiotics broadened to cover for Pseudomonas as well as vanc omycin for MRSA coverage 2. Hypokalemia ? Corrected per protocol 3. Acute renal insufficiency ? Did improve with IV fluids 4. Essential hypertension ? Patient is on HCTZ as well as lisinopril did continue 5. Dyslipidemia ? Patient is on pravastatin did continue 6. Obstructive sleep apnea ? Patient is on CPAP consistent use encouraged 7. Seizure disorder ? Patient is on Keppra did continue 8. History of PE/DVT ? This was thought to be associated with immobility patient did complete treatment with systemic anticoagulation 9. Previous history of CVA ? Patient is on antiplatelet therapy with aspirin did continue 10. Class III obesity with BMI of 50.7 ? Weight loss advised 11. DVT prophylaxis ? Lovenox 40 mg SC every 12 Time spent in the patient's overall evaluation,decision-making process, review of diagnostic data, adjustment of management, discussion with other providers, nursing nursing and ancillary staff involved in patient's care documentation, 36 Minutes Charges/Coding Visit Charges Inpatient E&M: 22469 Subs Hosp L2
--- NOTE | 2022-10-09 08:59 | DS.PCM_ITS ---
Providers Date of Admission: 10/07/22 Date of Discharge: 10/09/22 Primary Care Physician: Dr. Esteban Hensley MD Reason For Visit: RIGHT LE CELLULITIS Diagnosis Discharge Diagnosis (1) Cellulitis of right leg: Status: Acute Code(s): L03.115 - Cellulitis of right lower limb (2) Elevated serum creatinine: Status: Acute Code(s): R79.89 - Other specified abnormal findings of blood chemistry (3) Hypokalemia: Status: Acute Code(s): E87.6 - Hypokalemia Plan Patient is a 62-year-old gentleman admitted with right lower extremity redness a nd swelling. He had apparently been treated with Keflex as an outpatient for cellulitis he however did not improve his decision to present to the emergency department. 1. Right lower extremity cellulitis ? Patient did failed outpatient treatment with Keflex. Admitted to regular nursing floor antibiotics broadened to cover for Pseudomonas as well as vancomycin for MRSA coverage ?patient did respond to therapy discharged on Levaquin for 5 more days 2. Hypokalemia ? Corrected per protocol 3. Acute renal insufficiency ? Did improve with IV fluids 4. Essential hypertension ? Patient is on HCTZ as well as lisinopril did continue 5. Dyslipidemia ? Patient is on pravastatin did continue 6. Obstructive sleep apnea ? Patient is on CPAP consistent use encouraged 7. Seizure disorder ? Patient is on Keppra did continue 8. History of PE/DVT ? This was thought to be associated with immobility patient did complete treatment with systemic anticoagulation 9. Previous history of CVA ? Patient is on antiplatelet therapy with aspirin did continue 10. Class III obesity with BMI of 50.7 ? Weight loss advised 11. DVT prophylaxis ? Lovenox 40 mg SC every 12 Time spent in the patient's overall evaluation,decision-making process, review of diagnostic data, adjustment of management, discussion with other providers, nursing nursing and ancillary staff involved in patient's care documentation, 36 Minutes Medications at Discharge Home Medications multivitamin 1 ea PO DAILY 01/03/16 aspirin 81 mg tablet,delayed release (Adult Low Dose Aspirin) 81 mg PO QDAY 12/17/17 triamcinolone acetonide 55 mcg nasal spray aerosol (Nasacort) 1 spray intranasal QDAY PRN Allergy Symptoms 12/18/17 cholecalciferol (vitamin D3) 25 mcg (1,000 unit) capsule 25 mcg PO DAILY 05/09/22 hydrochlorothiazide 25 mg tablet 25 mg PO QDAY #90 tabs 06/26/22 lisinopril 20 mg tablet 20 mg PO QDAY #90 tabs 06/26/22 pravastatin 40 mg tablet 40 mg PO QHS #90 tabs 06/26/22 levetiracetam 1,000 mg tablet 1,000 mg PO BID #180 tabs 09/07/22 cephalexin 500 mg capsule 500 mg PO 4XD . 10/07/22 loratadine 10 mg tablet 10 mg PO DAILY ALLERGIES 10/07/22 levofloxacin 750 mg tablet 750 mg PO DAILY #7 tabs 10/09/22 Hospital Course Summary of Care Provided Minutes Spent on Discharge: 36 Physical Exam Narrative GENERAL: cooperative HEENT: Atraumatic; normocephalic EYES; Anicteric, Normal Conjunctiva NECK; supple, normal thyroid, RESPIRATORY: Diminished to auscultation CARDIOVASCULAR: Regular S1 S2, GI: soft, normoactive bowel sounds, : No Renal angle tenderness; EXTREMITIES: No edema, no clubbing, MUSCULOSKELETAL: no muscle wasting NEURO: Awake; no lateralizing signs. SKIN: Erythema and warmth involving the right lower extremity PSYCH; Flat affect Weight / BMI Weight Weight: 142.428 kg Body Mass Index (BMI) 50.6 ABG / Lab / Microbiology Data Result Diagrams: 10/08/22 05:08 10/08/22 05:08 Laboratory: Laboratory Results - last 24 hr 10/08/22 08:00: MRSA (PCR) Negative 10/09/22 01:05: Vancomycin Trough 12.3 D/C Instructions Discharge Diet: No restrictions Discharge Activity: Return to Normal Activity Call your doctor if you observe: Fever of 101 or Higher, Shortness of breath, Fainting spells and Chest pain Meaningful Use Info Meaningful Use Diagnoses (Choose all that apply): None applicable Discharge Plan Admission Admit Date/Time: 10/07/22 14:39 Attending Provider: Anibal Moody Primary Care Provider: Esteban Hensley Consulting Providers: Jocelyne Schuster ; Symone Craig Discharge Orders/Prescriptions Prescriptions: New levofloxacin 750 mg tablet 750 mg PO DAILY Qty: 7 0RF Continued aspirin [Adult Low Dose Aspirin] 81 mg tablet,delayed release (DR/EC) 81 mg PO QDAY triamcinolone acetonide [Nasacort] 55 mcg aerosol,spray 1 spray INTRANASAL QDAY PRN (Reason: Allergy Symptoms) cholecalciferol (vitamin D3) 25 mcg (1,000 unit) capsule 25 mcg PO DAILY levetiracetam 1,000 mg tablet 1,000 mg PO BID Qty: 180 2RF multivitamin 1 EACH tablet 1 ea PO DAILY cephalexin 500 mg capsule 500 mg PO 4XD Label Comments: TAKE 1 CAPSULE BY MOUTH 4 TIMES DAILY FOR 14 DAYS loratadine 10 mg Tablet 10 mg PO DAILY pravastatin 40 mg tablet 40 mg PO QHS Qty: 90 3RF lisinopril 20 mg tablet 20 mg PO QDAY Qty: 90 3RF hydrochlorothiazide 25 mg tablet 25 mg PO QDAY Qty: 90 3RF Referrals / Follow Up: Esteban Hensley MD [Primary Care Provider] - In 1 Week Disposition Disposition (needs filled in before D/C Order can be placed): Home, Self Care Charges/Coding Visit Charges Inpatient E&M: 09674 Disch Hosp >30min
[2022-10-09] MEDS: Aspirin E.C. 81 MG Tablet PO (09:01)
[2022-10-09] MEDS: Loratadine 10 MG Tablet PO (09:01)
[2022-10-09] MEDS: Lisinopril 20 MG Tablet PO (09:01)
[2022-10-09] MEDS: Cholecalciferol (VIT D3) 25 MCG TABLET (1,000 UNITS) PO (09:01)
[2022-10-09] MEDS: levETIRAcetam 1,000 MG Tablet 1000 MG PO (09:01)
[2022-10-09] MEDS: hydroCHLOROthiazide 25 MG Tablet PO (09:01)
[2022-10-09] MEDS: Enoxaparin 40 MG/0.4 ML Syringe SC (09:02)
[2022-10-09] MEDS: Petrolatum 33% Tube 1 APPLIC TOPICAL (09:03)
--- NOTE | 2022-10-09 09:50 | CASEMGMT ---
ROZ RINALDI Assessment: Face to Face with pt for initial transition planning/care coordination assessment. RN GENTRY introduced self and role at [facility], pt voices understanding and consents to assessment. Pt is A/O x4 and answers all questions appropriately at this time. Pt sitting up in chair in no distress. Care providers, pharmacy, and demographics verified/updated. Admitting Dx: RLE cellulitis PCP:Shellie Specialists:Deion, cardio; Yovanny Neuro Preferred Pharmacy: [facility] Insurance: [employer] Prescription Benefit: yes LNOK: Beth Bills, ; Melissa Bob, dtr Living Arrangements: Pt lives with in a multistory home with no steps to enter. Pt reports he is I in ADL's and denies concerns at home. Transportation: Pt drives self and denies concerns with transportation. DME/HHC/SNF: Pt has a cane but does not use. He has a bipap. Pt has had HHC in the past but is unsure of which agency provided it. Pt denies SNF stays. Pt states no concerns with going home at time of dc. Pt states no further concerns/needs. CM to follow. Advised pt to ask CM if any further question/concerns/needs arise, voices understanding. Pt Goal: Home Plan: Home
--- NOTE | 2022-10-09 11:00 | PHA.DC.MC ---
Pharmacy Service has performed discharge medication reconciliation and counseling for this patient. The patient was counseled on the following discharge medications and changes in medications for homegoing were reviewed. 1. LEVOFLOXACIN - Informed about interaction with multivitamin. Advised to separate timing of medication to avoid possible interaction. The Reason for Use, instructions for use, and potential side effects were reviewed for all new medications. The patient's questions regarding all of their medications were answered. The patient was able to verbally demonstrate an understanding of their discharge medications. Home Medications multivitamin 1 ea PO DAILY 01/03/16 aspirin 81 mg tablet,delayed release (Adult Low Dose Aspirin) 81 mg PO QDAY 12/17/17 triamcinolone acetonide 55 mcg nasal spray aerosol (Nasacort) 1 spray intranasal QDAY PRN Allergy Symptoms 12/18/17 cholecalciferol (vitamin D3) 25 mcg (1,000 unit) capsule 25 mcg PO DAILY 05/09/22 hydrochlorothiazide 25 mg tablet 25 mg PO QDAY #90 tabs 06/26/22 lisinopril 20 mg tablet 20 mg PO QDAY #90 tabs 06/26/22 pravastatin 40 mg tablet 40 mg PO QHS #90 tabs 06/26/22 levetiracetam 1,000 mg tablet 1,000 mg PO BID #180 tabs 09/07/22 loratadine 10 mg tablet 10 mg PO DAILY ALLERGIES 10/07/22 levofloxacin 750 mg tablet 750 mg PO DAILY #7 tabs 10/09/22 The patient's discharge medication list was reviewed for discrepancies and discrepancies were resolved.
[2022-10-09 11:50] VITALS: BP 118/68; PULSE 70; RESP 16; TEMP 36.4; O2SAT 98
--- NOTE | 2022-10-09 12:31 | CASEMGMT ---
Social Work As per admitting drilling fluids specialist, pt has LW/POA but is not able to bring in the documents. Pt indicated Beth Mcneal is her POA. CHELSEA Lopez
== END 2022-10-09 12:00 | disposition home or self-care (01) | DRG 603 ==
LOC: ED 12:28 → MS3 15:08
PROVIDERS: Internal Medicine; Physician Assistant; Admitting Provider Internal Medicine; Emergency Provider Emergency Medicine; PCP Family Medicine; Visit Provider Internal Medicine
DX: L03.115 Cellulitis of right lower limb (principal); Z68.43 Body mass index [BMI] 50.0-59.9, adult; G40.909 Epilepsy, unspecified, not intractable, without status epilepticus; E66.01 Morbid (severe) obesity due to excess calories; E78.5 Hyperlipidemia, unspecified; E87.6 Hypokalemia; I10 Essential (primary) hypertension; L84 Corns and callosities; G47.33 Obstructive sleep apnea (adult) (pediatric); N28.9 Disorder of kidney and ureter, unspecified; Z79.82 Long term (current) use of aspirin; Z79.899 Other long term (current) drug therapy; Z86.73 Personal history of transient ischemic attack (TIA), and cerebral infarction without residual deficits; Z86.718 Personal history of other venous thrombosis and embolism; Z86.711 Personal history of pulmonary embolism; Z95.2 Presence of prosthetic heart valve
CPT/HCPCS: 36415; 80048; 80053; 80202; 83036; 83735; 84100; 84443; 85025; 87040; 87641; 93971; 94668; 99285; J7040; J7050; J7120; A4216

== ENCOUNTER → 2022-10-30 | Outpatient (CLI) | payer BC, SELFPAY | END | disposition home or self-care (01) | LOC: MTLAB 14:26 | PROVIDERS: PCP Family Medicine; Visit Provider Psychiatry & Neurology Neurology | DX: G40.909 Epilepsy, unspecified, not intractable, without status epilepticus (principal) | CPT/HCPCS: 36415; 82140 ==

== ENCOUNTER → 2023-05-10 | Outpatient (CLI) | payer BC, SELFPAY ==
[2023-05-10 17:45] LABS: Hematocrit 45.9 % (40-54); Mean Corp Hgb Conc 32.7 g/dL (32-36); Mean Corpuscular Hgb 29.1 pg (27.0-32.0); Mean Corpuscular Volume 89.1 fL (80-94); Mean Platelet Vol. 9.4 fl (6.2-12.0); Platelet Count 268 K/mm3 (150-450); RBC Distribution Width CV 13.6 % (11.6-14.6); RBC Distribution Width SD 44.3 fl (35.1-43.9); Red Blood Count 5.15 M/mm3 (4.6-6.2); White Blood Count 7.1 K/mm3 (4.4-11.0)
[2023-05-10 18:11] LABS: AST(SGOT) 25 U/L (15-37); Alanine Aminotransfer ALT/SGPT 30 U/L (16-61); Albumin, Serum 3.8 g/dL (3.2-5.0); Alkaline Phosphatase 69 U/L (45-117); Anion Gap 5 (5-15); BUN 14 mg/dL (7-18); BUN/Creat Ratio 12.6 RATIO (10-20); Calcium,Total 9.2 mg/dL (8.5-10.1); Chloride 111 mmol/L (98-107); Creatinine, Serum 1.11 mg/dL (0.70-1.30); EST Glomerular Filtration Rate 71 mL/min (>60); Est Glom Filt Rate - Afr Amer 86 mL/min (>60); Glucose 106 mg/dL (74-106); Potassium 3.4 mmol/L (3.5-5.1); Protein, Total 7.8 g/dL (6.4-8.2); Sodium Level 143 mmol/L (136-145)
[2023-05-14 20:07] LABS: KEPPRA (LEVETIRACETAM) 11.9 ug/mL (10.0-40.0)
== END | disposition home or self-care (01) ==
LOC: MTLAB 15:40
PROVIDERS: PCP Family Medicine; Referring Provider Psychiatry & Neurology Neurology; Visit Provider Psychiatry & Neurology Neurology
DX: G40.909 Epilepsy, unspecified, not intractable, without status epilepticus (principal)
CPT/HCPCS: 36415; 80053; 80177; 82140; 85027

== ENCOUNTER → 2023-05-14 | Outpatient (CLI) | payer BC, SELFPAY ==
[2023-05-14 11:14] LABS: AST(SGOT) 52 U/L (15-37); Alanine Aminotransfer ALT/SGPT 31 U/L (16-61); Albumin, Serum 3.5 g/dL (3.2-5.0); Alkaline Phosphatase 72 U/L (45-117); Cholesterol 114 mg/dL (200); Globulin 4.4 g/dL (2.2-4.2); High Density Lipoprotein 55 mg/dL; Protein, Total 7.9 g/dL (6.4-8.2); Triglycerides 99 mg/dL; Very Low Density Lipoprotein 20 mg/dL (5-40)
== END | disposition home or self-care (01) ==
LOC: LAB 09:51
PROVIDERS: PCP Family Medicine; Referring Provider Nurse Practitioner Gerontology; Visit Provider Nurse Practitioner Gerontology
DX: E78.5 Hyperlipidemia, unspecified (principal)
CPT/HCPCS: 36415; 80061; 80076

== ENCOUNTER → 2023-05-24 | Outpatient (CLI) | payer BC, SELFPAY ==
--- NOTE | 2023-05-24 17:07 | RAD_ITS ---
INDICATION: Left shoulder pain EXAMINATION/TECHNIQUE: X-RAY - LEFT XR Shoulder Min 2 Views 4 VIEWS COMPARISON: No relevant prior comparison study available FINDINGS: SOFT TISSUES: No soft tissue swelling or gas. No radiopaque foreign body. BONES/JOINTS: No acute fracture or subluxation.. Normal alignment. Moderate degenerative changes of the glenohumeral and acromioclavicular joints.. No sclerotic or destructive changes observed. OTHER: Emphysematous changes. RAD/Shoulder min 2 Views IMPRESSION: No acute abnormalities. Moderate degenerative changes of the glenohumeral and acromioclavicular joints.. Electronically Signed: Casey Medellin MD at 18:34 EDT ,
== END | disposition home or self-care (01) ==
PROVIDERS: PCP Family Medicine; Referring Provider Family Medicine; Visit Provider Family Medicine
DX: M25.512 Pain in left shoulder (principal)
CPT/HCPCS: 73030

== ENCOUNTER → 2023-06-04 | Outpatient (CLI) | payer BC, SELFPAY ==
--- NOTE | 2023-06-04 14:43 | ECHOD_ITS ---
Reason For Study: PRESENCE OF PROSTHETIC HEART VALVE Procedure This was a 2D Doppler, Color Flow transthoracic echocardiogram. The study was technically difficult. Definity deferred due to inability to obtain IV access after several tries. Exam performed in department. Left Ventricle Normal LV size. Moderate concentric left ventricular hypertrophy. Left ventricular systolic function is normal. Stage 1 diastolic dysfunction. No regional wall motion abnormalities noted. Right Ventricle Normal RV size. Normal systolic function. Atria The left atrium is moderately enlarged. The right atrium is severely enlarged. Mitral Valve Normal mitral valve. Tricuspid Valve Bioprosthetic tricuspid valve. Echogenic structure attached to the prosthetic tricuspid valve is likely part of valve apparatus. Aortic Valve Trisinus/trileaflet aortic valve. Pulmonic Valve Normal pulmonic valve. Great Vessels Normal aortic root. The pulmonary artery is normal size. Pericardium/Pleural No pericardial effusion. MMode/2D Measurements & Calculations LVIDd: 4.5 cm IVSd: 1.5 cm Ao root diam: 4.0 cm LVIDs: 4.1 cm LVPWd: 1.7 cm FS: 9.0 % LAV(MOD-bp): 72.4 ml LA A4 area: 26.5 cm2 LA dimension(2D): 4.0 cm LAV(MOD-bp) Indexed: 29.9 ml/m2 LAV(MOD-sp2): 44.5 ml LAV(MOD-sp4): 91.9 ml TAPSE: 1.1 cm RA A4 area: 42.0 cm2 Time Measurements MV dec time: 0.19 sec Doppler Measurements & Calculations MV E max chris: 55.6 cm/sec Lat Peak E' Chris: 11.4 cm/sec Med Peak E' Chris: 5.6 cm/sec MV A max chris: 59.7 cm/sec E/E' lat: 4.9 E/E' med: 9.8 MV E/A: 0.93 MV V2 max: 74.6 cm/sec MV dec slope: 288.1 cm/sec2 Ao V2 max: 105.3 cm/sec MV max P.2 mmHg Ao max P.4 mmHg MV V2 mean: 45.4 cm/sec Ao V2 mean: 75.3 cm/sec MV mean P.95 mmHg Ao mean P.6 mmHg MV V2 VTI: 22.1 cm Ao V2 VTI: 22.8 cm AV (velocity ratio): 0.66 LV V1 max: 73.1 cm/sec PA V2 max: 102.6 cm/sec PI dec slope: 146.9 cm/sec2 LV V1 max P.1 mmHg PA V2 mean: 75.5 cm/sec LV V1 mean P.2 mmHg LV V1 mean: 50.3 cm/sec LV V1 VTI: 15.0 cm ECHO/Echo Complete Interpretation Summary Normal LV size. Moderate concentric left ventricular hypertrophy. Left ventricular systolic function is normal. Stage 1 diastolic dysfunction. The left atrium is moderately enlarged. The right atrium is severely enlarged. Echogenic structure attached to the prosthetic tricuspid valve is likely part o f valve apparatus. Ordering Physician: Mikki Nascimento Referring Physician: Mikki Nascimento Performed By: Loreta Foy RCS
== END | disposition home or self-care (01) ==
LOC: CVS 14:40
PROVIDERS: PCP Family Medicine; Referring Provider Nurse Practitioner Gerontology; Visit Provider Nurse Practitioner Gerontology
DX: Z95.2 Presence of prosthetic heart valve (principal)
CPT/HCPCS: 93306

== ENCOUNTER 2023-06-08 09:54 | Day surgery (SDC) | payer BC, SELFPAY ==
--- NOTE | 2023-06-08 | IMM_PTH ---
PATIENT: NADIA BECERRIL LOC: [facility] – [place], [place] U#:[id number] AGE/SX: 63/M ROOM: RE06/08/[address]: Dr. Cleo Mulligan MD : 1960 BED: DIS: 06/08/2023 SPEC #: [id number] RECD: 06/12/23 12:55 STATUS: CITLALLI REGrisel #: [id number] AQUILINO: 06/08/23 00:[address]: Cleo Mulligan DEPT: IMMUNOHISTOCHEMISTRY RECD BY: Yudelka Jones ENTERED: 06/12/23 12:56 SP TYPE: IMMUNO OTHR DR: Dr. Esteban Hensley MD Tissues: Skin of back, NOS Procedures: MART1 (add) S100 (initial) S-100 (add) PHYSICIAN & INSTITUTION [place] [address] SPECIMEN INFORMATION: Tissue Source: A. Lesion of midback, B. Lesion of left posterior shoulder Clinical Info: Neoplasm of lesion midback and left shoulder Specimen Number: [id number] A1, A2, A3, A4, B1, B2 CPT code: 66578, 31209 x 11 METHODOLOGY: Deparaffinized sections of prefer/formalin-fixed tissue or PAP/DQ stained slides are incubated with monoclonal/polyclonal antibodies/oligonucleotide probes. Localization is made via biotin free immunoperoxidase method. Appropriate controls are performed and reacted as expected. Results on target cell population are indicated in the following table: RESULTS: ANTIBODY / CLONE RESULT BLOCK A1 S-100 (4C4.9) positive MART-1 (A-103) positive BLOCK A2 S-100 (4C4.9) positive MART-1 (A-103) positive BLOCK A3 S-100 (4C4.9) positive MART-1 (A-103) positive BLOCK A4 S-100 (4C4.9) positive MART-1 (A-103) positive BLOCK B1 S-100 (4C4.9) positive MART-1 (A-103) positive BLOCK B2 S-100 (4C4.9) positive MART-1 (A-103) positive These tests were developed and their performance characteristics determined by [facility]. They may not have been cleared or approved by the U.S. Food and Drug Administration. The FDA has determined that such clearance or approval is not necessary. The above immunohistochemical/dualISH markers are ordered and reviewed by the Pathologist. INTERPRETATION: A. Skin lesion of lower back, excision: Invasive melanoma. B. Skin lesion of left posterior shoulder, excision: Invasive melanoma. AM:sierra 06/22/2023
[2023-06-08 10:19] VITALS: BP 153/73; PULSE 80; RESP 18; TEMP 36.5; O2SAT 100; BMI 52.6
--- NOTE | 2023-06-08 11:41 | PCM.HP.BLA ---
History and Physical Date of Admission: 06/08/23 Interim Note: The patient is examined and there are not changes to the exam of 05/29/23. He presents with pigmented lesions of his back x 2 --for excision and submission for path evaluation. He is aware of the possible need for further surgery depending on the resulting pathology. Assessment & Plan Assessment/Plan (1) Neoplasm of uncertain behavior of skin: PLAN: Plan For excision lesion of back x 2 with submission for pathologic evaluation.
--- NOTE | 2023-06-08 12:05 | LES_PTH ---
PATIENT: NADIA BECERRIL LOC: [facility] [place] U#:[id number] AGE/SX: 63/M ROOM: RE06/08/[address]: Dr. Cleo Mulligan MD : 1960 BED: DIS: 06/08/2023 SPEC #: [id number] RECD: 06/08/23 13:45 STATUS: CITLALLI SAEEDGrisel #: [id number] AQUILINO: 06/08/23 12:[address]: Cleo Mulligan DEPT: SURGICAL PATHOLOGY RECD BY: Marleni Arias ENTERED: 06/11/23 08:36 SP TYPE: Lesion OTHR DR: Dr. Esteban Hensley MD Tissues: A - Skin of back, NOS B - Skin of upper extremity and shoulder Procedures: Surgery Specimen Level IV HEADER OPERATION: Excision lesion midback (4 cm) PRE-OP DIAGNOSIS: Neoplasm of lesion midback and left posterior shoulder TISSUE SUBMITTED: A. pigmented lesion of lower back, B. Pigmented lesion of left posterior shoulder MICROSCOPIC DIAGNOSIS A. Skin lesion of lower back, excision: Malignant melanoma. See synoptic report below. B. Skin lesion of left posterior shoulder, excision: Malignant melanoma. See synoptic report below. AM:rg 06/22/2023 COMMENT A. Breslow Thickness: 0.6 mm Ulceration: Absent Mitoses/mm2: Not Identified Tumor Infiltrating Lymphocytes: Absent Regression: Present Perineural Invasion: Absent Vascular Invasion: Absent Satellite Nodules: Absent Margin Status: Lateral margin is close to melanoma in situ. Deep Margin: Negative B. Breslow Thickness: 0.5 mm Ulceration: Absent Mitoses/mm2: Not Identified Tumor Infiltrating Lymphocytes: Absent Regression: Absent Perineural Invasion: Absent Vascular Invasion: Absent Satellite Nodules: Absent Margin Status: Lateral margin is positive for melanoma in situ. Deep Margin: Negative for melanoma. This case was seen in consultation with Dr. Yeung of [employer]. The complete consultative report is viewable in EMR. Immunohistochemistry ([id number]) supports the above diagnosis. This case was discussed with Dr. Mulligan on 06/20/2023 Case has been reviewed in consultation with Dr. Baez who concurs with the above diagnosis. IDC:SJ MICROSCOPIC DESCRIPTION Slides are reviewed. GROSS DESCRIPTION A. Received in fixative is one container labeled with the patient's name and designated pigmented lesion of lower back. The specimen consists of a marroquin white skin ellipse measuring 3 x 2.5 x 0.5 cm. Skin surface shows irregular brown lesion. The specimen is oriented by sutures as follows: 2 sutures - superior aspect and 1 suture - right. The specimen is inked as follows: superior - black, inferior blue, right tip - yellow and left tip - green. The specimen is serially sectioned and totally submitted in 4 cassettes. B. Received in fixative is one container labeled with the patient's name and designated pigmented lesion of left posterior shoulder. The specimen consists of marroquin brown skin ellipse measuring 2.5 x 1.7 x 0.3 cm. The specimen is inked, serially sectioned and totally submitted in two cassettes. /SJ:cc 06/11/23 TC:0 CPT: 58262 x2
[2023-06-08 12:23] VITALS: BP 126/88; O2SAT 96; O2SAT 97; O2SAT 98
[2023-06-08] MEDS: Lidocaine 1% /Epi 1:100 9 ML, Sodium Bicarbonate 1 MEQ OPERA.SITE (12:30)
[2023-06-08 12:38] VITALS: BP 132/88; O2SAT 95; O2SAT 96; O2SAT 97; O2SAT 98; O2SAT 99
--- NOTE | 2023-06-08 13:27 | DCINST_ITS ---
Discharge Instructions Dressing / Incision Additional Dressing/Incision Instructions:: Keep your back elevated (recliner position) to reduce swelling and bleeding. Take the oral antibiotic (Keflex) 2 x a day until finished. May remove the dressing to shower. Replace with a large bandaid or gauze with tape. Avoid stretching or reaching. Follow Up Care Test Results: Test results from this visit will be discussed in further detail at your follow- up appointment, if applicable. Discharge Plan Admission Attending Provider: Cleo Mulligan Primary Care Provider: Esteban Hensley Discharge Orders/Prescriptions Prescriptions: New cephalexin 500 mg capsule 500 mg PO BID 5 Days Qty: 10 0RF No Action aspirin [Adult Low Dose Aspirin] 81 mg tablet,delayed release (DR/EC) 81 mg PO QDAY triamcinolone acetonide [Nasacort] 55 mcg aerosol,spray 1 spray INTRANASAL QDAY PRN (Reason: Allergy Symptoms) cholecalciferol (vitamin D3) 25 mcg (1,000 unit) capsule 25 mcg PO DAILY levocarnitine 330 mg tablet 660 mg PO BID Qty: 120 6RF Rx Instructions: must administer with a meal/food potassium chloride 20 mEq tablet extended release 20 meq PO DAILY Qty: 7 0RF levetiracetam 1,000 mg tablet 1,000 mg PO BID Qty: 180 2RF multivitamin 1 EACH tablet 1 ea PO DAILY loratadine 10 mg Tablet 10 mg PO DAILY pravastatin 40 mg tablet 40 mg PO QHS Qty: 90 3RF lisinopril 20 mg tablet 20 mg PO QDAY Qty: 90 3RF hydrochlorothiazide 25 mg tablet 25 mg PO QDAY Qty: 90 3RF Referrals / Follow Up: Esteban Hensley MD [Primary Care Provider] - Disposition Disposition (needs filled in before D/C Order can be placed): Home, Self Care
--- NOTE | 2023-06-08 13:31 | OP.PCM_ITS ---
Problems Associated Problem List Diagnoses (1) Neoplasm of uncertain behavior of skin: Report of Operation Date of Procedure: 06/08/23 Pre-Operative Diagnosis: neoplasm uncertain behavior back x 2 Post-Operative Diagnosis: same Surgery/Procedure Performed:: Excision neoplasm skin back (4.0cm) with intermediate closure and left posterior shoulder (4.0cm) with intermediate closure Surgeon: Cleo Mulligan Type of Anesthesia: Local Special Medications: buffered lidocaine with epinephrine Specimen's removed: above Estimated Blood Loss (mL): minimal Description of Procedure: The patient presents with 2 pigmented lesions of the back with recent growth or change. The patient is aware that these will be sent to pathology and further intervention may be needed depending on the resulting pathology. Informed consent is obtained. The patient was brought to the operating room and placed on the operating room table in a right lateral decubitus position. The back is prepped and draped in the usual sterile fashion. 1% Xylocaine with epinephrine is used for local anesthetic. Following this, these lesions are elliptically excised in a full- thickness of skin removed at both sites. Hemostasis is controlled with cautery. Is very thick skin is then closed using a 3-0 Monocryl as [id number] sutures in the subcutaneous tissue and dermis. Skin edges are approximated with a combination of running and interrupted Prolene suture. Gauze and Medipore tape were used for dressing. He tolerated the procedure well and was taken to the recovery area in an awake and stable condition. Needle and sponge counts are correct. Complications none Admit VTE Documentation VTE Mechan Device Prophylaxis: None Reason prophylaxis not ordered:: Treatment Not Indicated
[2023-06-08 13:53] VITALS: BP 118/80; PULSE 64; RESP 16; TEMP 36.6; O2SAT 100
== END 2023-06-08 14:33 | disposition home or self-care (01) ==
LOC: SDC 09:56 → AC 09:57
PROVIDERS: PCP Family Medicine; Referring Provider Plastic Surgery; Visit Provider Plastic Surgery
PROC: (CPT 11604; principal; 2023-06-08 11:55)
DX: C43.62 Malignant melanoma of left upper limb, including shoulder (principal); C43.59 Malignant melanoma of other part of trunk
CPT/HCPCS: 11604 ×2; 12034; 88305; 88341; 88342

== ENCOUNTER → 2023-07-13 | Outpatient (CLI) | payer BC, SELFPAY ==
[2023-07-13 17:38] LABS: Absolute Lymphocyte Count 1.86 X10^3/uL (0.83-4.51); Basophil# 0.02 X10^3/uL; Basophil% 0.3 % (0-1); Eosinophils% 1.5 % (0-5); Hematocrit 43.5 % (40-54); Hemoglobin 14.4 g/dL (13.0-16.5); Lymphocyte # 1.86 X10^3/ul (0.83-4.51); Lymphocyte % 27.9 % (19-41); Mean Corp Hgb Conc 33.1 g/dL (32-36); Mean Corpuscular Hgb 29.1 pg (27.0-32.0); Mean Corpuscular Volume 87.9 fL (80-94); Monocyte# 0.68 X10^3/uL; Monocyte% 10.2 % (0-10); NRBC Flagged by Analyzer 0 % (0-5); Neutrophil # 3.98 X10^3/uL (2.7-7.7); Neutrophil % 59.8 % (47-70); Platelet Count 269 K/mm3 (150-450); RBC Distribution Width SD 41.7 fl (35.1-43.9); Red Blood Count 4.95 M/mm3 (4.6-6.2); White Blood Count 6.7 K/mm3 (4.4-11.0)
[2023-07-13 18:23] LABS: ALB/GLOB Ratio 0.9 RATIO (0.9-2.4); AST(SGOT) 19 U/L (15-37); Alanine Aminotransfer ALT/SGPT 23 U/L (16-61); Albumin, Serum 3.5 g/dL (3.2-5.0); Alkaline Phosphatase 68 U/L (45-117); Anion Gap 5 (5-15); BUN 12 mg/dL (7-18); BUN/Creat Ratio 11.1 RATIO (10-20); Calcium,Total 9.8 mg/dL (8.5-10.1); Chloride 109 mmol/L (98-107); Creatinine, Serum 1.08 mg/dL (0.70-1.30); EST Glomerular Filtration Rate 73 mL/min (>60); Est Glom Filt Rate - Afr Amer 88 mL/min (>60); Globulin 3.8 g/dL (2.2-4.2); Glucose 91 mg/dL (74-106); Potassium 3.7 mmol/L (3.5-5.1); Protein, Total 7.3 g/dL (6.4-8.2); Sodium Level 142 mmol/L (136-145)
== END | disposition home or self-care (01) ==
LOC: MTLAB 16:48
PROVIDERS: PCP Family Medicine; Referring Provider Family Medicine; Visit Provider Family Medicine
DX: Z01.818 Encounter for other preprocedural examination (principal)
CPT/HCPCS: 36415; 80053; 85025

== ENCOUNTER 2023-07-19 10:11 | Day surgery (SDC) | payer BC, SELFPAY ==
--- NOTE | 2023-07-06 08:11 | EKG12_ITS ---
Test Reason : PRE-OP Blood Pressure : / mmHG Vent. Rate : 079 BPM Atrial Rate : 079 BPM P-R Int : 206 ms QRS Dur : 084 ms QT Int : 370 ms P-R-T Axes : 024 015 049 degrees QTc Int : 424 ms Sinus rhythm with Premature atrial complexes Otherwise normal ECG Confirmed by JN SEPULVEDA, MLEVI ([id number]), website/blog editor PARAM RHOADES ([id number]) on 07/09/2023 10:54:19 AM Referred By: Cleo Mulligan Confirmed By:MELVI RAGSDALE MD
[2023-07-19] VITALS (8 sets, daily range): BP systolic 96–124; BP diastolic 56–79; PULSE 61–87; RESP 16–18; TEMP 36.2–36.7; O2SAT 92–100; BMI 51.5
[2023-07-19] MEDS: Lactated Ringers 1,000 ML 15 ML IV (11:18)
--- NOTE | 2023-07-19 11:58 | PCM.HP.BLA ---
History and Physical Date of Admission: 07/19/23 Pt examined. There are no changes to the exam of 07/13/23. Pt with recent hx of melanoma x 2. Here for wide excision melanoma back x 2. Assessment & Plan Assessment/Plan (1) Malignant melanoma of upper back: (2) Melanoma of lower back: PLAN: Plan Pt for wide excision melanoma back x 2 and possible STSG for wound closure.
--- NOTE | 2023-07-19 12:00 | LES_PTH ---
PATIENT: NADIA BECERRIL LOC: [facility] [place] U#:[id number] AGE/SX: 63/M ROOM: RE07/19/[address]: Dr. Cleo Mulligan MD : 1960 BED: DIS: 07/19/2023 SPEC #: [id number] RECD: 07/19/23 18:26 STATUS: CITLALLI LIYAH #: [id number] AQUILINO: 07/19/23 12:[address]: Cleo Mulligan DEPT: SURGICAL PATHOLOGY RECD BY: Ting Walton ENTERED: 07/20/23 10:16 SP TYPE: Lesion OTHR DR: Dr. Esteban Hensley MD Tissues: A - Skin of back, NOS B - Skin of upper extremity and shoulder Procedures: Surgery Specimen Level IV HEADER OPERATION: Wide excision melanoma back and shoulder PRE-OP DIAGNOSIS: Malignant melanoma of upper back; melanoma of lower back TISSUE SUBMITTED: A - Melanoma lower back, wide excision, two sutures - superior aspect, one suture - right aspect, B - Left shoulder melanoma, wide excision, two sutures - superior aspect, one suture - right aspect MICROSCOPIC DIAGNOSIS A. Lower back melanoma, wide excision: Negative for residual melanoma. Focal ulceration and associated granulation tissue reaction and reactive changes, consistent with previous biopsy site. B. Left shoulder melanoma, wide excision: Negative for residual melanoma. Focal ulceration and associated granulation tissue reaction and reactive changes, consistent with previous biopsy site. SJ:sierra 07/24/2023 COMMENT Please make reference to previous specimen ([id number]), skin lesion of lower back, excision with diagnosis of malignant melanoma and skin lesion of left posterior shoulder, excision with diagnosis of malignant melanoma. MICROSCOPIC DESCRIPTION Slides are reviewed. GROSS DESCRIPTION A - Received in fixative is one container labeled with the patient's name and designated melanoma lower back, wide excision, two sutures - superior aspect, one suture - right aspect. The specimen consists of an ovoid piece of marroquin-white skin measuring 5.0 x 3.5 cm and up to 1.0 cm in thickness. The specimen is inked as follows: superior margin - blue, inferior margin - green, right margin - yellow, left margin - red, deep margin - black. Extensive area of ulceration is noted on the surface measuring 3.0 x 1.6 cm. The entire specimen is submitted in 11 cassettes. Cassette 1 contains the most right and left aspect of the ellipse. Sections are submitted from right area to left. The rest of the specimen is serially sectioned from one end to the other end. B - Received in fixative is one container labeled with the patient's name and designated left shoulder melanoma, wide excision, two sutures - superior aspect, one suture - right aspect. The specimen consists of an ovoid piece of marroquin-white skin measuring 4.2 x 2.5 cm and up to 1.3 cm in thickness. The specimen is inked as follows: superior margin - blue, inferior margin - green, right margin - red, left margin - yellow, deep margin - black. Focal area of ulceration is noted in the center of the specimen measuring 0.7 x 0.6 cm. The specimen is serially sectioned and submitted entirely in ten cassettes. / YONATHAN:sierra 07/20/2023 TC:5 CPT: 33114 x2
[2023-07-19] MEDS: Cefazolin 3 GM in 0.9% Normal Saline (100mL Bag) 100 ML IV (12:50)
[2023-07-19] MEDS: Lidocaine 1% /Epi 1:100 (50ml) 50 ML VIAL (12:51)
--- NOTE | 2023-07-19 14:29 | DCINST_ITS ---
Discharge Instructions Diet Discharge Diet: No restrictions Dressing / Incision Additional Dressing/Incision Instructions:: May remove the dressing to shower. Replace with dry gauze and tape 1 x a day. Sleep in a recliner position to decrease pressure on the area. Take the oral antibiotic (Keflex) 2 x a day until finished. Follow Up Care Please Follow Up With: Cleo Mulligan MD When: in 1 week Test Results: Test results from this visit will be discussed in further detail at your follow- up appointment, if applicable. Discharge Plan Admission Attending Provider: Cleo Mulligan Primary Care Provider: Esteban Hensley Discharge Orders/Prescriptions Prescriptions: New cephalexin 500 mg capsule 500 mg PO BID 7 Days Qty: 14 0RF No Action aspirin [Adult Low Dose Aspirin] 81 mg tablet,delayed release (DR/EC) 81 mg PO QDAY triamcinolone acetonide [Nasacort] 55 mcg aerosol,spray 1 spray INTRANASAL QDAY PRN (Reason: Allergy Symptoms) cholecalciferol (vitamin D3) 25 mcg (1,000 unit) capsule 25 mcg PO DAILY levocarnitine 330 mg tablet 660 mg PO BID Qty: 120 6RF Rx Instructions: must administer with a meal/food potassium chloride 20 mEq tablet extended release 20 meq PO DAILY Qty: 7 0RF levetiracetam 1,000 mg tablet 1,000 mg PO BID Qty: 180 2RF multivitamin 1 EACH tablet 1 ea PO DAILY loratadine 10 mg Tablet 10 mg PO DAILY hydrochlorothiazide 25 mg tablet See Rx Instructions .ROUTE .COMPLEX Qty: 90 3RF Dose Instruction: TAKE 1 TABLET DAILY Rx Instructions: TAKE 1 TABLET DAILY lisinopril 20 mg tablet See Rx Instructions .ROUTE .COMPLEX Qty: 90 3RF Dose Instruction: TAKE 1 TABLET DAILY Rx Instructions: TAKE 1 TABLET DAILY pravastatin 40 mg tablet 40 mg PO QHS Qty: 90 3RF Referrals / Follow Up: Esteban Hensley MD [Primary Care Provider] - Disposition Disposition (needs filled in before D/C Order can be placed): Home, Self Care
--- NOTE | 2023-07-19 14:32 | OP.PCM_ITS ---
Problems Associated Problem List Diagnoses (1) Malignant melanoma of upper back: (2) Melanoma of lower back: Report of Operation Date of Procedure: 07/19/23 Pre-Operative Diagnosis: Melanoma of the left shoulder and lower back Post-Operative Diagnosis: Same Surgery/Procedure Performed:: Wide excision melanoma of left shoulder (6.5 cm) with intermediate closure; wide excision melanoma lower back (6.0 cm) with intermediate closure Surgeon: Cleo Mulligan cafeteria associate: ROZ MIDDLETONtree warden Type of Anesthesia: General Specimen's removed: Melanoma x 2 Description of Procedure: The patient has had diagnosis of melanoma of the left shoulder and lower back. In order to assure complete excision, and a wide local excision with 1 cm margin is planned. The patient is aware of the potential for need for skin graft in the event primary closure is not possible. The specimen will be submitted to pathology. The patient was brought to the operating room and placed under general anesthesia in the supine position. The patient is then carefully positioned in the right lateral decubitus position with care to pad all pressure points. A warming blanket is placed as well as sequential compression stockings. The shoulder and back are prepped and draped in the usual sterile fashion. 1% Xylocaine with epinephrine is used to inject the areas to facilitate hemostasis. Following this, a 1 cm margin was marked around both surgical excision sites. The incisions were then made and carried down through the subcutaneous tissue to the fascia. The specimens are removed and marked for orientation and sent down the separate specimens to pathology for permanent section. Hemostasis is controlled with cautery. The tissue was then manipulated to determine the best method for closure. Primary closure is possible and therefore I initially placed silk sutures to facilitate skin relaxation for closure. Monocryl sutures used as [id number] to close the deep subcutaneous tissue at both sites. A layered closure using a strata fix suture is then used with skin edges approximated in a subcuticular fashion. Further reinforcement is then carried out with interrupted Prolene suture. Gauze and Medipore tape was then placed. He tolerated the procedure well was taken to the recovery area in an awake and stable condition. Needle and sponge counts were correct. Complications None Admit VTE Documentation VTE Mechan Device Prophylaxis: SCD's
== END 2023-07-19 16:40 | disposition home or self-care (01) ==
LOC: SDC 10:13 → AC 10:14
PROVIDERS: PCP Family Medicine; Referring Provider Plastic Surgery; Visit Provider Plastic Surgery
PROC: (CPT 11406; principal; 2023-07-19 11:50)
DX: L92.9 Granulomatous disorder of the skin and subcutaneous tissue, unspecified (principal); I10 Essential (primary) hypertension; Z85.820 Personal history of malignant melanoma of skin
CPT/HCPCS: 11406; 12034; 00400; 88305; 93005; J7120; J2405

== ENCOUNTER → 2023-08-30 | Outpatient (CLI) | payer OTHER, SELFPAY ==
--- OUTSIDE RECORDS SUMMARY | 2023-08-30 13:57 | XMS RPT_ITS | CCD ---
Author Name Unknown Address [address] [place] [address] Organization [facility] Care Team Providers Care Rack Cleaner Name Role Phone Sadie COURTNEY, Valeri Bosch Unavailable Unavailable Mitzy Benson Unavailable Mitzy Benson Unavailable Allergies Allergy Classification Reported Allergen(s) Allergy Type Date of Onset Reaction(s) Facility (3 sources) lisinopril drug allergy 11-04-2014 cough [facility] Work Phone: (6 sources) NKDA drug allergy 09-02-2014 [facility] Work Phone: Medications Completed/Discontinued Medications Medication Drug Class(es) Dates Sig (Normalized) Sig (Original) acetaminophen 325 mg oral tablet (3 sources) Start: 09-02-2014 take 2 tablets by mouth every six hours as needed TYLENOL 325 MG TABS 2 tablets by mouth every 6 hours as needed ACETAMINOPHEN [id number] Mainor Albarran MD HYDROCODONE-ACETAMIN OPHEN (6 sources) Opioid Agonist Start: 08-31-2014 End: 09-23-2014 NORCO 5-325 MG TABS as directed HYDROCODONE-ACETAMI NOPHEN [id number] Preston Wade Problems Active Problems Problem Classification Problem Date Documented Da te Episodic/Chronic Essential hypertension (3 sources) Hypertensive disorder; Translations: [Essential (primary) hypertension] Onset: 06-16-2015 06-18-2015 Chronic Heart valve disorders (9 sources) Presence of other heart-valve replacement; 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] Onset: 08-31-2014 06-16-2015 Chronic Other nutritional; endocrine; and metabolic disorders (9 sources) Body mass index (BMI) 45.0-49.9, adult; Translations: [Morbid obesity] Onset: 06-24-2014 12-21-2015 Chronic Unclassified (3 sources) Obstructive sleep apnea syndrome; Translations: [Obstructive sleep apnea (adult) (pediatric)] Onset: 06-16-2015 06-16-2015 Chronic Unclassified (3 sources) 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; Translations: [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] Onset: 08-31-2014 08-31-2014 Past or Other Problems Problem Classification Problem Date Documented Da te Episodic/Chronic Other lower respiratory disease (6 sources) Cough; Translations: [Lung mass] Onset: 06-24-2014 06-24-2014 Episodic Pneumonia (3 sources) Pneumonia; Translations: [Pneumonia, unspecified organism] Onset: 05-06-2014 05-06-2014 Episodic Unclassified (3 sources) Edema; Translations: [Edema, unspecified] Onset: 01-01-2015 01-01-2015 Episodic Results Test Name Value Interpretation Reference Range Facil ity Vital Signs Date Time Vital Sign Value Performing Clinician Faci lity 12-19-2016 09:19-0400 BMI (Body Mass Index) 48.74 kg/m2 Mitzy Dave [facility] Work Phone: 12-19-2016 09:19-0400 BP Diastolic 60 mm[Hg] Mitzy [facility] Work Phone: 12-19-2016 09:19-0400 BP Systolic 120 mm[Hg] [facility]zy [facility] Work Phone: 12-19-2016 09:19-0400 Height 167.64 cm Mitzy [facility] Work Phone: 12-19-2016 09:19-0400 Pulse (Heart Rate) 64 /min [facility]zy [facility] Work Phone: 12-19-2016 09:19-0400 Respiratory Rate 20 /min Mitzy [facility] Work Phone: 12-19-2016 09:19-0400 Weight 136.99 kg [facility]zy [facility] Work Phone: 12-21-2015 09:22-0400 BSA (Body Surface Area) 2.4 m2 Mitzy Benson [facility] Work Phone: 09-23-2014 11:00-0500 Body Temperature 97.2 [degF] Mitzy [facility] Work Phone: 09-23-2014 11:00-0500 Pulse Oximetry 98 % Mitzy [facility] Work Phone: 09-02-2014 14:47-0500 Pulse Oximetry 95 % Mitzy [facility] Work Phone: Procedures Date Procedure Procedure Detail Performing Clinician Start: 12-19-2016 End: 04-03-2017 Echocardiography Mainor Albarran MD Start: 12-21-2015 End: 12-21-2015 FEED MILL MANAGER Mainor Albarran MD Start: 12-21-2015 End: 12-21-2015 Follow Up Appt 1 year Mainor Albarran MD Start: 06-16-2015 End: 06-16-2015 FEED MILL MANAGER Leonora Obrien PA-C Work Phone: Start: 06-16-2015 End: 06-17-2015 Documentation of current medications Leonora Obrien PA-C Work Phone: Start: 06-16-2015 End: 06-16-2015 Follow Up Appt 6 months Leonora smith PA-C Work Phone: Start: 01-04-2015 End: 01-04-2015 *BMP Esteban Osorio MD Start: 01-04-2015 End: 01-04-2015 BNP Esteban Osorio MD Start: 01-01-2015 End: 01-01-2015 Nurse, Teaching, Wound Check (no charge) Esteban Osorio MD Start: 12-18-2014 End: 12-19-2014 Documentation of current medications Mainor Albarran MD Start: 12-18-2014 End: 12-18-2014 Follow Up Appt 6 months Joe Jeter Start: 12-18-2014 End: 12-18-2014 MMM Mainor Albarran MD Start: 09-02-2014 End: 09-02-2014 FEED MILL MANAGER Mainor Albarran MD Start: 09-02-2014 End: 09-03-2014 Documentation of current medications Mainor Albarran MD Start: 09-02-2014 End: 09-15-2014 Echocardiography Mainor Albarran MD Start: 09-02-2014 End: 09-02-2014 Electrocardiogram, complete Mainor Lui i, MD Start: 09-02-2014 End: 09-02-2014 Follow Up Appt 3 months Joe Jeter Plan of Treatment Date Care Activity Detail Author Start: 12-18-2017 End: 12-18-2017 Appointment Appointment [facility] Work Phone: Start: 12-18-2017 End: 12-18-2017 Appointment Appointment [facility] Work Phone: Start: 12-19-2016 End: 12-19-2016 FEED MILL MANAGER FEED MILL MANAGER [facility] Work Phone: Start: 12-19-2016 End: 12-19-2016 Echocardiography Echocardiogram (complete) [facility] Work Phone: Start: 12-19-2016 End: 12-19-2016 Follow Up Appt 1 year Follow Up Appt 1 year [facility] Work Phone: Start: 12-21-2015 End: 12-21-2015 FEED MILL MANAGER FEED MILL MANAGER [facility] Work Phone: Start: 12-21-2015 End: 12-21-2015 Follow Up Appt 1 year Follow Up Appt 1 year [facility] Work Phone: Start: 06-16-2015 End: 06-16-2015 FEED MILL MANAGER FEED MILL MANAGER [facility] Work Phone: Start: 06-16-2015 End: 06-16-2015 Follow Up Appt 6 months Follow Up Appt 6 months [facility] Work Phone: Start: 06-16-2015 End: 06-18-2015 Follow Up Appt Other Follow Up Appt Other [facility] Work Phone: Start: 01-04-2015 End: 01-04-2015 *BMP *BMP [facility] Work Phone: Start: 01-04-2015 End: 01-04-2015 BNP *Brain Natriuretic Peptide BNP [facility] Work Phone: Start: 12-18-2014 End: 12-18-2014 Follow Up Appt 6 months Follow Up Appt 6 months [facility] Work Phone: Start: 12-18-2014 End: 12-18-2014 MMM MMM [facility] Work Phone: Start: 10-09-2014 End: 10-09-2014 [facility] [address], [address] [facility] Work Phone: Start: 09-06-2014 End: 06-24-2014 Ct thorax w/o dye CT Chest without contrast [facility] Work Phone: Start: 09-02-2014 End: 09-02-2014 FEED MILL MANAGER FEED MILL MANAGER [facility] Work Phone: Start: 09-02-2014 End: 09-02-2014 Echocardiography Echocardiogram (complete) [facility] Work Phone: Start: 09-02-2014 End: 09-02-2014 Electrocardiogram, complete EKG (In office) [facility] Work Phone: Start: 09-02-2014 End: 09-02-2014 Follow Up Appt 3 months Follow Up Appt 3 months [facility] Work Phone: Start: 06-24-2014 End: 06-24-2014 Follow Up Appt 3 months Follow Up Appt 3 months [facility] Work Phone: Start: 06-24-2014 End: 06-24-2014 Pulmonary Fuction Test - complete Pulmonary Fuction Test - complete [employer] Work Phone: Start: 05-06-2014 End: 05-06-2014 Ct thorax w/o dye CT Chest without contrast [employer] [facility] Work Phone: Additional Source Comments FOR RECORDS PERTAINING TO PATIENTS WHO ARE OR HAVE BEEN ENROLLED IN A CHEMICAL DEPENDENCY/SUBSTANCEABUSE PROGRAM, SOME INFORMATION MAY BE OMITTED. This clinical summary was aggregated from multiple sources. Caution should be exercised in using it in the provision of clinical care. This summary normalizes information from multiple sources, and as a consequence, information in this document may materially change the coding, format and clinical context of patient data. In addition, data may be omitted in some cases. CLINICAL DECISIONS SHOULD BE BASED ON THE PRIMARY CLINICAL RECORDS. [facility]. provides no warranty or guarantee of the accuracy or completeness of information in this document.
[2023-08-30 15:29] LABS: Hematocrit 45.8 % (40-54); Hemoglobin 15.2 g/dL (13.0-16.5); Mean Corp Hgb Conc 33.2 g/dL (32-36); Mean Corpuscular Hgb 28.7 pg (27.0-32.0); Mean Corpuscular Volume 86.6 fL (80-94); Mean Platelet Vol. 9.6 fl (6.2-12.0); Platelet Count 234 K/mm3 (150-450); RBC Distribution Width CV 13.3 % (11.6-14.6); RBC Distribution Width SD 41.7 fl (35.1-43.9); Red Blood Count 5.29 M/mm3 (4.6-6.2)
[2023-08-30 16:27] LABS: ALB/GLOB Ratio 1.1 RATIO (0.9-2.4); AST(SGOT) 27 U/L (15-37); Alanine Aminotransfer ALT/SGPT 31 U/L (16-61); Albumin, Serum 4.1 g/dL (3.2-5.0); Alkaline Phosphatase 70 U/L (45-117); Anion Gap 7 (5-15); BUN 12 mg/dL (7-18); BUN/Creat Ratio 9.9 RATIO (10-20); Calcium,Total 9.6 mg/dL (8.5-10.1); Chloride 105 mmol/L (98-107); Cholesterol 139 mg/dL (200); Creatinine, Serum 1.21 mg/dL (0.70-1.30); EST Glomerular Filtration Rate 64 mL/min (>60); Est Glom Filt Rate - Afr Amer 77 mL/min (>60); Globulin 3.8 g/dL (2.2-4.2); Glucose 101 mg/dL (74-106); High Density Lipoprotein 60 mg/dL; Potassium 3.5 mmol/L (3.5-5.1); Protein, Total 7.9 g/dL (6.4-8.2); Sodium Level 139 mmol/L (136-145); Triglycerides 103 mg/dL; Very Low Density Lipoprotein 21 mg/dL (5-40)
[2023-09-03 18:07] LABS: KEPPRA (LEVETIRACETAM) 21.4 ug/mL (10.0-40.0)
== END | disposition home or self-care (01) ==
LOC: MTLAB 13:49
PROVIDERS: Psychiatry & Neurology Neurology; PCP Family Medicine; Referring Provider Family Medicine; Visit Provider Family Medicine
DX: E78.5 Hyperlipidemia, unspecified (principal); R60.9 Edema, unspecified
CPT/HCPCS: 36415; 80053; 80061; 80177; 82140; 85027

== ENCOUNTER → 2024-01-17 | Outpatient (CLI) | payer OTHER, SELFPAY ==
[2024-01-17 18:12] LABS: AST(SGOT) 27 U/L (15-37); Alanine Aminotransfer ALT/SGPT 25 U/L (16-61); Alkaline Phosphatase 81 U/L (45-117); Anion Gap 6 (5-15); BUN 16 mg/dL (7-18); Calcium,Total 9.4 mg/dL (8.5-10.1); Chloride 107 mmol/L (98-107); Cholesterol 114 mg/dL (200); Creatinine, Serum 1.14 mg/dL (0.70-1.30); EST Glomerular Filtration Rate 68 mL/min (>60); Est Glom Filt Rate - Afr Amer 83 mL/min (>60); Glucose 87 mg/dL (74-106); High Density Lipoprotein 50 mg/dL; Potassium 3.6 mmol/L (3.5-5.1); Sodium Level 139 mmol/L (136-145); Triglycerides 90 mg/dL; Very Low Density Lipoprotein 18 mg/dL (5-40)
== END | disposition home or self-care (01) ==
LOC: MTLAB 15:59
PROVIDERS: PCP Family Medicine; Referring Provider Family Medicine; Visit Provider Family Medicine
DX: E78.5 Hyperlipidemia, unspecified (principal)
CPT/HCPCS: 36415; 80053; 80061

== ENCOUNTER → 2024-04-01 | Outpatient (CLI) | payer OTHER, SELFPAY | END | disposition home or self-care (01) | LOC: LAB 12:32 | PROVIDERS: PCP Family Medicine; Referring Provider Psychiatry & Neurology Neurology; Visit Provider Psychiatry & Neurology Neurology | DX: E72.20 Disorder of urea cycle metabolism, unspecified (principal) | CPT/HCPCS: 82140 ==

== ENCOUNTER → 2024-07-17 | Outpatient (CLI) | payer OTHER, SELFPAY ==
[2024-07-17 15:49] LABS: AST(SGOT) 23 U/L (15-37); Alanine Aminotransfer ALT/SGPT 24 U/L (16-61); Albumin, Serum 3.8 g/dL (3.2-5.0); Alkaline Phosphatase 76 U/L (45-117); Anion Gap 8 (5-15); BUN 15 mg/dL (7-18); BUN/Creat Ratio 14.3 RATIO (10-20); Calcium,Total 9.8 mg/dL (8.5-10.1); Chloride 106 mmol/L (98-107); Cholesterol 140 mg/dL (200); Creatinine, Serum 1.05 mg/dL (0.70-1.30); EST Glomerular Filtration Rate 75 mL/min (>60); Est Glom Filt Rate - Afr Amer 91 mL/min (>60); Globulin 3.9 g/dL (2.2-4.2); Glucose 90 mg/dL (74-106); High Density Lipoprotein 66 mg/dL; Potassium 3.5 mmol/L (3.5-5.1); Protein, Total 7.7 g/dL (6.4-8.2); Sodium Level 140 mmol/L (136-145); Triglycerides 97 mg/dL; Very Low Density Lipoprotein 19 mg/dL (5-40)
== END | disposition home or self-care (01) ==
LOC: MTLAB 10:49
PROVIDERS: PCP Family Medicine; Referring Provider Family Medicine; Visit Provider Family Medicine
DX: E78.5 Hyperlipidemia, unspecified (principal)
CPT/HCPCS: 36415; 80053; 80061

== ENCOUNTER → 2024-07-31 | Outpatient (CLI) | payer OTHER, SELFPAY ==
--- NOTE | 2024-07-31 10:45 | ECHOD_ITS ---
Reason For Study: TRICUSPID VALVE REPLACEMENT Procedure This was a 2D Doppler, Color Flow transthoracic echocardiogram. The study was technically difficult. Definity unavailable, no IV access. Exam performed in department. Left Ventricle Normal LV size. The left ventricular ejection fraction is 50 %. No regional wall motion abnormalities noted. Right Ventricle Normal RV size. Normal systolic function. Atria Normal left atrium. The right atrium is mildly enlarged. Tricuspid Valve Bioprosthetic tricuspid valve. Great Vessels Normal aortic root. The pulmonary artery is normal size. Pericardium/Pleural No pericardial effusion. Medication Unable to use Definity due to no IV access (with ultrasound). MMode/2D Measurements & Calculations LVIDd: 4.9 cm IVSd: 1.4 cm LVOT diam: 2.2 cm LVIDs: 2.9 cm LVPWd: 1.1 cm LVOT area: 3.8 cm2 RVDd: 4.5 cm FS: 41.0 % asc Aorta Diam: 3.9 cm LAV(MOD-bp): 41.9 ml LVAd ap4: 23.3 cm2 LAV(MOD-bp) Indexed: 17.1 ml/m2 LVLd ap4: 7.7 cm LAV(MOD-sp2): 49.2 ml EDV(MOD-sp4): 60.8 ml LAV(MOD-sp4): 35.9 ml EDV(sp4-el): 59.5 ml LVAs ap4: 13.5 cm2 LVLs ap4: 6.5 cm ESV(MOD-sp4): 25.4 ml ESV(sp4-el): 23.7 ml EF(MOD-sp4): 58.2 % EF(sp4-el): 60.2 % SV(MOD-sp4): 35.3 ml SV(MOD-sp2): 42.8 ml LVAd ap2: 25.0 cm2 LVLd ap2: 7.3 cm SI(MOD-sp4): 14.5 ml/m2 SI(MOD-sp2): 17.5 ml/m2 EDV(MOD-sp2): 69.8 ml EDV(sp2-el): 72.1 ml LVAs ap2: 13.8 cm2 LVLs ap2: 6.3 cm ESV(MOD-sp2): 27.0 ml ESV(sp2-el): 25.8 ml EF(MOD-sp2): 61.3 % SV(sp4-el): 35.8 ml Ao sinus diam: 3.[address] Junction: 3.0 cm LA A4 area: 16.2 cm2 LA dimension(2D): 4.1 cm RA A4 area: 23.1 cm2 TAPSE: 1.3 cm Time Measurements MV dec time: 0.12 sec Doppler Measurements & Calculations MV E max chris: 75.9 cm/sec Lat Peak E' Chris: 10.2 cm/sec Med Peak E' Chris: 8.3 cm/sec MV A max chris: 72.3 cm/sec E/E' lat: 7.4 E/E' med: 9.1 MV E/A: 1.0 Ao V2 max: 102.9 cm/sec LV V1 max: 74.9 cm/sec MV dec slope: 636.2 cm/sec2 Ao max P.2 mmHg LV V1 max P.2 mmHg Ao V2 mean: 83.3 cm/sec LV V1 mean P.3 mmHg Ao mean P.9 mmHg LV V1 mean: 54.9 cm/sec Ao V2 VTI: 23.8 cm LV V1 VTI: 14.6 cm AV (velocity ratio): 0.61 CASSIDY(I,D): 2.3 cm2 CASSIDY(V,D): 2.8 cm2 SV(LVOT): 55.8 ml TV V2 max: 147.9 cm/sec PA V2 max: 78.6 cm/sec TV max P.7 mmHg TV V2 mean: 106.0 cm/sec TV mean P.7 mmHg ECHO/Echo Complete Interpretation Summary Normal LV size. The left ventricular ejection fraction is 50 %. The right atrium is mildly enlarged. Bioprosthetic tricuspid valve. Structurally normal valves. Ordering Physician: Mikki Nascimento Referring Physician: Esteban Hensley Performed By: Gale Gray RDCS
== END | disposition home or self-care (01) ==
LOC: CVS 10:43
PROVIDERS: PCP Family Medicine; Referring Provider Nurse Practitioner Gerontology; Visit Provider Nurse Practitioner Gerontology
DX: Z95.2 Presence of prosthetic heart valve (principal)
CPT/HCPCS: 93306; Q9957; A4216

== ENCOUNTER → 2024-09-05 | Outpatient (CLI) | payer OTHER, SELFPAY ==
--- NOTE | 2024-09-05 16:43 | RAD_ITS ---
PROCEDURE: KNEE 4 OR MORE VIEWS REASON FOR EXAM: Pain TECHNIQUE: 4 views COMPARISON: None. FINDINGS: Moderate degenerative changes primarily medially. Diagnostic of osteoarthrosis. No erosive disease. No fracture. No suspicious bone lesion. Normal alignment. No effusion. Soft tissues are unremarkable. RAD/Knee 4 or More Views IMPRESSION: As above. [facility]
== END | disposition home or self-care (01) ==
LOC: MTRAD 16:40
PROVIDERS: PCP Family Medicine; Referring Provider Family Medicine; Visit Provider Family Medicine
DX: M25.561 Pain in right knee (principal)
CPT/HCPCS: 73564

== ENCOUNTER → 2024-10-14 | Outpatient (CLI) | payer OTHER, SELFPAY ==
[2024-10-14 13:22] LABS: Ammonia 31.5 umol/L (16-60)
[2024-10-16 16:08] LABS: KEPPRA (LEVETIRACETAM) 12.8 ug/mL (10.0-40.0)
== END | disposition home or self-care (01) ==
LOC: MTLAB 10:42
PROVIDERS: PCP Family Medicine; Referring Provider Psychiatry & Neurology Neurology; Visit Provider Psychiatry & Neurology Neurology
DX: G40.909 Epilepsy, unspecified, not intractable, without status epilepticus (principal)
CPT/HCPCS: 36415; 80177; 82140

== ENCOUNTER 2025-04-10 12:30 | Outpatient (RCR) | payer OTHER, SELFPAY ==
--- NOTE | 2025-01-09 10:52 | HP.PTEVAL_ITS ---
Patient's Visit Information Visit Information Visit Information: NADIA BECERRIL is a 64 year old M referred to Physical Therapy by NETO Galvez with a diagnosis of UNILATERAL PRIMARY OSTEOARTHRITIS ,RIGHT KNEE. Date of Evaluation: 01/09/25 Physical Therapist: Saad Jimenez, PT, Cert MDT, OCS Visit Plan Frequency: 2x /Week Duration: 4 Weeks Plan: PT INTERVENTIONS ROM KNEE ,FLEXABILITY HAMSTRINGS/QUADS ,STRENGTHENING QUADS/HAMS/HIP ,FUNCTIONAL STRENGTHENING AND AEROBIC EX'S Subjective Subjective: This 64 y/o male presents to physical therapy with right knee osteoarthritis . Patient has had right knee pain Sep 2024 . Seen tried cortisone injection. Seen [facility] ,but referrer to [facility]. X-rays showed Moderate degenerative changes primarily medially.Patient seen [facility] had viscosupplementation Euflexxa injection x3 . Helped some some. Medication meloxicam. Patient located medial /anterior. Patient aggravating factors stairs ,difficulty with kneeling /squatting extended walking. Alleviating factors rest. Sleeping well .. 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 EDEMA : right leg swollen h/o DVT AROM: supine knee flexion 0-120 degrees FLEXABIITY: hamstrings min tight STAIRS: alternating MMT: quads/hams/hip flexion/abduction 4/5 ,ankle 4/5 Special Tests R Knee Valgus - MCL: Negative R Knee Varus - LCL: Negative R Knee Patellar Grind - PFS: Negative Balance/Special Test Scores Lower Extremity Functional Score: 40 Goals Goal 1:: Patient to be I with HEP for knee Goal Time Frame: 4-6 Weeks Goal 2:: Patient to improve AROM supine knee flexion by 5 -10 degrees to improve function and gait Goal Time Frame: 4-6 Weeks Goal 3:: Patient to improve LFES score by 5 points to improve QOL and gait Goal Time Frame: 4-6 Weeks Goal 4:: Patient to demonstrate 50 % improvement with less pain and improved function Goal Time Frame: 4-6 Weeks Rehabilitation Potential Physical Therapy Diagnosis: This patient has right knee DJD with pain and decrease ROM impairs ADLS and housework tasks thus benefit from skilled PT Rehabilitation Potential: Good Anticipated Interventions Patient/Client Instruction: Educate patient on: Condition and Plan of Care For the Purpose of:: To decrease pain, To increase ROM, To improve muscle perfor terrell and motor function, To improve ability to perform ADL's, To increase tolerance to activity/condition/position, To improve ability of physical actions for home/community/work/leisure, To improve health of tissue, To decrease soft tissue restriction, To increase flexibility/ROM and To improve tolerance to ADL's Therapeutic Exercise to Include: Strength training, Endurance training, Balance training, Flexibilty training and Active ROM Comment: quads/hams /hip For the Purpose of:: To decrease pain, To increase ROM, To improve muscle performance and motor function, To improve ability of physical actions for home/community/work/leisure, To improve health of tissue, To decrease soft tissue restriction, To increase flexibility/ROM, To improve endurance, To improve balance and To improve tolerance to ADL's Text: Thank you for the opportunity to evaluate your patient. For Medicare and Medicare HMO plans, please review the plan of care and approve it. It will need to be FAXED BACK to us at [phone] for Medicare purposes. For Medicare only, by signing this I certify the plan of care. Please let me know if there are questions or concerns regarding this plan of care. Physician Signature: Date:__
--- NOTE | 2025-04-10 13:00 | HP.PTDCSUM ---
Discharge Summary D/C summary: It has been my pleasure to treat NADIA BECERRIL referred by Lolly Bonds NP-C, with the diagnosis of UNILATERAL PRIMARY OSTEOARTHRITIS ,RIGHT KNEE for a total of 24 visit(s). Discharge Date: 04/10/25 Please see the following information for a summary of their discharge status. 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 HEP at home Walked 2 1/2 miles Stairs are issue but stronger Pain Right Knee: Pain Intensity (Out of 10): 0 Overall Improvement % Improvement: 75 Objective Objective/Function: POSTURE: mild forward posture GAIT: reciprocal pattern PALPATION:unremarkable EDEMA : right leg swollen h/o DVT AROM: supine knee flexion 0-130 degrees FLEXABIITY: hamstrings min tight STAIRS: alternating with rail with difficulty MMT: ( peak force) quads right 65.6 ,hamstrings 48.2 ,hip flexion abduction 4/5 ,ankle 4/5 Goals Goal 1:: Patient to be I with HEP for knee Goal Progress: Goal Met Goal 2:: Patient to improve AROM supine knee flexion by 5 -10 degrees to improve function and gait Goal Progress: Goal Met Goal 3:: Patient to improve LFES score by 5 points to improve QOL and gait Goal Progress: Goal Met Goal 4:: Patient to demonstrate 50 % improvement with less pain and improved function Plan Plan: D/C D/C Information Discharge Comments: HEP d/c sentence: If there are questions or concerns regarding this patient's physical therapy, please feel free to call me at [phone]. Thank you for the referral of this patient. Sincerely, Saad Jimenez, PT, Cert MDT, OCS Balance/Gait/Functional tests Balance/Special Test Scores Lower Extremity Functional Score: 57 Improvement % Improvement: 75
== END 2025-04-10 19:00 | disposition home or self-care (01) ==
LOC: PT 12:30
PROVIDERS: PCP Family Medicine; Referring Provider Nurse Practitioner Family; Visit Provider Nurse Practitioner Family
DX: M17.11 Unilateral primary osteoarthritis, right knee (principal)
CPT/HCPCS: 97110; 97162; 97530

== ENCOUNTER → 2025-05-11 | Outpatient (CLI) | payer OTHER, SELFPAY ==
[2025-05-11 10:57] LABS: Anion Gap 11 (5-15); BUN 13 mg/dL (4-19); BUN/Creat Ratio 11.8 RATIO (10-20); Calcium,Total 9.5 mg/dL (7.6-11.0); Carbon Dioxide 25.5 mmol/L (21.0-32.0); Chloride 104 mmol/L (98-108); Glucose 91 mg/dL (70-99); Potassium 4.9 mmol/L (3.3-5.1)
== END | disposition home or self-care (01) ==
LOC: LAB 09:46
PROVIDERS: PCP Family Medicine; Referring Provider Family Medicine; Visit Provider Family Medicine
DX: I10 Essential (primary) hypertension (principal)
CPT/HCPCS: 36415; 80048

== ENCOUNTER → 2025-07-14 | Outpatient (CLI) | payer OTHER, SELFPAY ==
--- NOTE | 2025-07-14 13:45 | ECHOD_ITS ---
Reason For Study Reason For Study: TRICUSPID VALVE REPLACEMENT Procedure This was a 2D Doppler, Color Flow transthoracic echocardiogram. Myocardial strain analysis was performed in this exam to aid in the assessment of cardiac function. The patient is in sinus rhythm. Exam performed in department. Left Ventricle Normal LV size. Left ventricular systolic function is normal. The left ventricular ejection fraction is 60 %. No regional wall motion abnormalities noted. Right Ventricle Normal RV size. Normal systolic function. Atria Normal left atrium. The right atrium is mildly enlarged. Mitral Valve Normal mitral valve. Mild (1+) eccentric mitral valve insufficiency. Tricuspid Valve Bioprosthetic tricuspid valve. Aortic Valve Normal aortic valve. Trisinus/trileaflet aortic valve. Pulmonic Valve Normal pulmonic valve. Great Vessels Normal aortic root. The pulmonary artery is normal size. Inferior vena cava collapse with respiration. Pericardium/Pleural No pericardial effusion. MMode/2D Measurements & Calculations LVIDd: 4.7 cm IVSd: 1.3 cm LVOT diam: 2.8 cm LVPWd: 1.1 cm LVOT area: 6.3 cm2 Ao root diam: 3.4 cm asc Aorta Diam: 3.9 cm LAV(MOD- bp): 42.5 ml LAV(MOD- bp) Indexed: 18.5 ml/m2 LAV(MOD- sp2): 44.5 ml LAV(MOD- sp4): 35.0 ml LVAd ap4: 25.7 cm2 LVAd ap2: 25.8 cm2 LVLd ap4: 8.1 cm LVLd ap2: 7.6 cm EDV(MOD- bp): 72.8 ml EDV(MOD-sp4): 70.2 ml EDV(MOD-sp2): 73.7 ml ESV(MOD- bp): 30.5 ml EDV(sp4-el): 69.5 ml EDV(sp2-el): 74.1 ml EF(MOD- bp): 58.1 % LVAs ap4: 15.8 cm2 LVAs ap2: 14.9 cm2 LVLs ap4: 7.3 cm LVLs ap2: 6.6 cm ESV(MOD-sp4): 30.7 ml ESV(MOD-sp2): 28.7 ml ESV(sp4-el): 29.2 ml ESV(sp2-el): 28.4 ml EF(MOD-sp4): 56.3 % EF(MOD-sp2): 61.1 % EF(sp4-el): 57.9 % SV(MOD-sp4): 39.5 ml SV(MOD-sp2): 45.0 ml SV(sp4- el): 40.3 ml SI(MOD-sp4): 17.3 ml/m2 SI(MOD-sp2): 19.7 ml/m2 Ao sinus diam: 3.[address] Junction: 2.7 cm LA A4 area: 16.5 cm2 LA dimension(2D): 4.8 cm RA A4 area: 22.1 cm2 TAPSE: 1.2 cm Time Measurements MV dec time: 0.19 sec Doppler Measurements & Calculations MV E max chris: 67.2 cm/sec Lat Peak E' Chris: 12.4 cm/sec Med Peak E' Chris: 5.4 cm/sec MV A max chris: 62.1 cm/sec E/E' lat: 5.4 E/E' med: 12.4 MV E/A: 1.1 Ao V2 max: 112.2 cm/sec LV V1 max: 90.5 cm/sec MV dec slope: 345.6 cm/sec2 Ao max P.0 mmHg LV V1 max P.3 mmHg Ao V2 mean: 78.1 cm/sec LV V1 mean P.7 mmHg Ao mean P.8 mmHg LV V1 mean: 60.4 cm/sec Ao V2 VTI: 24.1 cm LV V1 VTI: 18.3 cm AV (velocity ratio): 0.76 CASSIDY(I,D): 4.8 cm2 CASSIDY(V,D): 5.1 cm2 SV(LVOT): 115.0 ml PA V2 max: 92.5 cm/sec PI end-d chris: 141.2 cm/sec ECHO/Echo Complete Interpretation Summary Normal LV size. Left ventricular systolic function is normal. The left ventricular ejection fraction is 60 %. Bioprosthetic tricuspid valve. The global longitudinal strain is mildly abnormal. The global longitudinal stra in = -15.9% (abnormal). Ordering Physician: Raul Parra Referring Physician: Esteban Hensley Performed By: Gale Gray RDCS
== END | disposition home or self-care (01) ==
LOC: CVS 13:42
PROVIDERS: PCP Family Medicine; Referring Provider Student in an Organized Health Care Education/Training Program; Visit Provider Student in an Organized Health Care Education/Training Program
DX: Z95.2 Presence of prosthetic heart valve (principal)
CPT/HCPCS: 93306